=== PATIENT | female | born 1925 | race Asian ===

== ENCOUNTER 2017-02-09 18:19 | Inpatient (IN) | payer MEDICARE, MEDICAID ==
[~2017-02-09] VITALS: Ht 152.4 cm; Wt 51.7 kg
--- NOTE | 2017-02-09 18:08 | Emergency Room Report ---
History of Present Illness General Chief Complaint: Abnormal Labs Source: Patient, EMS Present Illness HPI Patient presents via EMS after being found down on her floor. She had a glucose of 25. They gave her D10W a total of 25 g and she woke up. She was still altered at that time. She has a history of diabetes and hypertension. Not know when her last tetanus shot was. It's unknown whether she takes blood thinners. She denies pain. She also denies fever or cough. No chest pain now. No dysuria. She has some skin changes from being on the floor. She takes insulin. Allergies: Coded Allergies: NO KNOWN DRUG ALLERGIES (Unverified Allergy, Unknown, 02/10/17) Uncoded Allergies: NO KNOWN ALLERGY (Allergy, Unknown, 02/09/17) Patient History Past Medical History: see triage record Social History Narrative from home Reviewed Nursing Documentation: PMH: Agreed, PSxH: Agreed Nursing Documentation-PM Past Medical History: No History, Except For Hx Hypertension: Yes Hx Diabetes: Yes Review of Systems All Other Systems: negative except mentioned in HPI Physical Exam Vital Signs Date Time Temp Pulse Resp B/P (MAP) Pulse Ox O2 Delivery O2 Flow Rate FiO2 02/09/17 17:52 81 16 152/65 95 Room Air Sp02 EP Interpretation: reviewed, normal General Appearance: well appearing, no apparent distress, thin - frail, other - GCS 14 Head: normocephalic Eyes: bilateral eye normal inspection, bilateral eye PERRL ENT: dry mucus membranes Neck: full range of motion, supple, no bony tend Respiratory: chest non-tender, lungs clear, normal breath sounds Cardiovascular #1: regular rate, rhythm Cardiovascular #2: 2+ radial (R) Gastrointestinal: normal inspection, normal bowel sounds, non tender, no mass, non-distended Musculoskeletal: back normal, normal range of motion, pelvis stable Neurologic: alert, motor strength/tone normal, DTRs symmetric, sensory intact, speech normal, oriented - X2 Psychiatric: mood/affect normal Skin: warm/dry, abrasions Medical Decision Making Diagnostic Impression: Primary Impression: Hypoglycemia Additional Impressions: Altered level of consciousness Hypernatremia Renal insufficiency Diabetes mellitus Qualified Codes: E10.69 - Type 1 diabetes mellitus with other specified complication ER Course The patient presents with hypoglycemia and after being on the ground for a prolonged period of time. Differential includes rhabdomyolysis, occult infection, acute myocardial infarction, insulin excess, brain bleed amongst others. Evaluation will be with EKG, labs, CT of the head and chest x-ray. EKG unremarkable. CXR no infiltrates. CT white matter changes. Patient treated with tetanus and hydration. Labs are significant for hyponatremia and renal insufficiency suggesting dehydration. The patient will receive gentle hydration in the emergency department. Admit tele Dr. Pierce. Laboratory Tests Test 02/09/17 18:05 02/09/17 19:27 White Blood Count 12.6 K/UL (4.8-10.8) H Red Blood Count 3.68 M/UL (4.20-5.40) L Hemoglobin 11.4 G/DL (12.0-16.0) L Hematocrit 32.4 % (37.0-47.0) L Mean Corpuscular Volume 88 FL (80-99) Mean Corpuscular Hemoglobin 31.0 PG (27.0-31.0) Mean Corpuscular Hemoglobin Concent 35.1 G/DL (32.0-36.0) Red Cell Distribution Width 12.0 % (11.6-14.8) Platelet Count 256 K/UL (150-450) Mean Platelet Volume 5.3 FL (6.5-10.1) L Neutrophils (%) (Auto) % (45.0-75.0) Lymphocytes (%) (Auto) % (20.0-45.0) Monocytes (%) (Auto) % (1.0-10.0) Eosinophils (%) (Auto) % (0.0-3.0) Basophils (%) (Auto) % (0.0-2.0) Differential Total Cells Counted 100 Neutrophils % (Manual) 86 % (45-75) H Lymphocytes % (Manual) 5 % (20-45) L Monocytes % (Manual) 7 % (1-10) Eosinophils % (Manual) 0 % (0-3) Basophils % (Manual) 0 % (0-2) Band Neutrophils 2 % (0-8) Platelet Estimate Adequate Platelet Morphology Normal Red Blood Cell Morphology Hypochromasia 1+ Anisocytosis 1+ Prothrombin Time 10.0 SEC (9.30-11.50) Prothrombin Time INR 1.0 (0.9-1.1) PTT 24 SEC (23-33) Sodium Level 147 mEQ/L (135-145) H Potassium Level 4.1 mEQ/L (3.4-4.9) Chloride Level 106 mEQ/L (98-107) Carbon Dioxide Level 25 mEQ/L (20-30) Anion Gap 16 (5-15) H Blood Urea Nitrogen 36 mg/dL (7-23) H Creatinine 1.6 mg/dL (0.5-0.9) H Estimate Glomerular Filtration Rate mL/min (>60) Glucose Level 161 mg/dL (74-106) H Calcium Level 9.8 mg/dL (8.6-10.2) Total Bilirubin 0.4 mg/dL (0.0-1.2) Aspartate Amino Transferase (AST) 48 U/L (5-40) H Alanine Aminotransferase (ALT) 24 U/L (3-33) Alkaline Phosphatase 44 U/L (35-104) Total Creatine Kinase 499 U/L (26-140) H Troponin I < 0.30 ng/mL (<=0.30) Pro-B-Type Natriuretic Peptide 1138 pg/mL (0-450) H Total Protein 8.0 g/dL (6.6-8.7) Albumin 4.3 g/dL (3.5-5.2) Globulin 3.7 g/dL Albumin/Globulin Ratio 1.1 (1.0-2.7) Urine Color Pale yellow Urine Appearance Clear Urine pH 6.5 (4.5-8.0) Urine Specific [place] 1.015 (1.005-1.035) Urine Protein 4+ (NEGATIVE) H Urine Glucose (UA) 2+ (NEGATIVE) H Urine Ketones 2+ (NEGATIVE) H Urine Occult Blood 5+ (NEGATIVE) H Urine Nitrite Negative (NEGATIVE) Urine Bilirubin Negative (NEGATIVE) Urine Urobilinogen Normal MG/DL (0.0-1.0) Urine Leukocyte Esterase Negative (NEGATIVE) Urine RBC 5-10 /HPF (0 - 2) H Urine WBC 0-2 /HPF (0 - 2) Urine Squamous Epithelial Cells Occasional /LPF Urine Bacteria Few /HPF (NONE) EKG Diagnostic Results Rate: normal Rhythm: NSR ST Segments: no acute changes - prolonged QT Rhythm Strip Diag. Results EP Interpretation: yes Rhythm: NSR, no PVC's, no ectopy Chest X-Ray Diagnostic Results Chest X-Ray Diagnostic Results : Chest X-Ray Ordered: Yes # of Views/Limited/Complete: 1 View Indication: Other EP Interpretation: Yes Interpretation: no consolidation, no effusion, no pneumothorax, no acute cardiopulmonary disease Impression: No acute disease Interpreting ER Provider: Electronically signed by Paul Perdomo MD CT/MRI/US Diagnostic Results CT/MRI/US Diagnostic Results : Imaging Test Ordered: head Impression white matter changes, no CVA or bleed Status: improved Disposition: ADMITTED INPATIENT Condition: Serious Paul Perdomo M.D. Feb 09, 2017 18:08
[~2017-02-09 18:19] MED LIST: Bacitracin Oint UD TOPIC ONE; LANTUS SOL100 UNIT/1 SUBQ
[2017-02-09 18:20] VITALS: BP 148/62
[2017-02-09 18:56] LABS: ALANINE AMINOTRANSFERASE 24 U/L (3-33); ALBUMIN/GLOBULIN RATIO 1.1 (1.0-2.7); ANION GAP 16 (5-15); ASPARTATE AMINO TRANSFERASE 48 U/L (5-40); CALCIUM 9.8 mg/dL (8.6-10.2); CARBON DIOXIDE 25 mEQ/L (20-30); CHLORIDE 106 mEQ/L (98-107); CREATININE 1.6 mg/dL (0.5-0.9); HEMOLYSIS 13; POTASSIUM 4.1 mEQ/L (3.4-4.9); SODIUM 147 mEQ/L (135-145)
[2017-02-09 19:02] LABS: MEAN CORPUSCULAR HGB CONC 35.1 G/DL (32.0-36.0); MEAN CORPUSCULAR VOLUME 88 FL (80-99); MEAN PLATELET VOLUME 5.3 FL (6.5-10.1); PLATELET COUNT 256 K/UL (150-450); RED BLOOD COUNT 3.68 M/UL (4.20-5.40); WHITE BLOOD COUNT 12.6 K/UL (4.8-10.8)
[2017-02-09 19:13] LABS: TROPONIN I < 0.30 ng/mL (<=0.30)
[2017-02-09] MEDS ORDERED: Tubing IV Cassette IV ONE (19:20)
[2017-02-09 19:49] LABS: APPEARANCE,URINE CLEAR; KETONES,URINE 2+ (NEGATIVE); LEUKOCYTE ESTERASE ,URINE NEGATIVE (NEGATIVE); NITRITE,URINE NEGATIVE (NEGATIVE); PH,URINE 6.5 (4.5-8.0); PROTEIN,URINE 4+ (NEGATIVE); UROBILINOGEN,URINE NORMAL MG/DL (0.0-1.0)
[2017-02-09] MEDS ORDERED: Tetanus/Diptheria/Pertussis Vaccine 0.5ml Syr IM ONE (20:00)
[2017-02-09 20:02] LABS: BACTERIA,URINE FEW /HPF; SQUAMOUS EPITHELIAL CELL,UR OCCASIONAL /LPF (NONE/OCC); WBC,URINE 0-2 /HPF (0 - 2)
[2017-02-09 20:09] LABS: ANISOCYTOSIS 1+; BAND NEUTROPHILS % (MANUAL) 2 % (0-8); LYMPHOCYTES % (MANUAL) 5 % (20-45); NEUTROPHILS % (MANUAL) 86 % (45-75); TOTAL CELLS COUNTED 100
[2017-02-09 20:10] LABS: BASOPHILS % (MANUAL) 0 % (0-2); EOSINOPHILS % (MANUAL) 0 % (0-3); HYPOCHROMASIA 1+; PLATELET ESTIMATE ADEQUATE; PLATELET MORPHOLOGY NORMAL
[2017-02-09] MEDS ORDERED: Miralax 17gm pkt ORAL PRN (21:15)
[2017-02-09] MEDS ORDERED: DuoNeb 0.5-3(2.5)mg/3ml neb HHN PRN (21:15)
[2017-02-09] MEDS ORDERED: Morphine Sulfate 2mg/ml Inj IVP PRN (21:15)
[2017-02-09] MEDS ORDERED: Nitroglycerin Subl 0.4mg tab (Bottle Of 25) SL PRN (21:15)
[2017-02-09 21:50] VITALS: BP 148/82
[2017-02-09] MEDS ORDERED: Cefepime 1gm vial ONE (22:09)
[2017-02-09] MEDS ORDERED: Vancomycin 1gm inj IVPB ONE (22:09)
[2017-02-09] MEDS: Cefepime 1gm/D5W 55ml IVPB SCH ×2 (22:18)
[2017-02-09] MEDS ORDERED: Vancomycin 1 GM in D5W 275 ML IVPB ONE (23:00)
[2017-02-10] VITALS: BP 153/111
[2017-02-10 04:00] VITALS: BP 137/71
[2017-02-10] MEDS: NovoLOG Insulin Flexpen SUBQ SCH ×4 (06:45→20:35)
[2017-02-10 08:44] VITALS: BP 138/76
[2017-02-10] MEDS: Heparin 5000 units/ml inj SUBQ SCH ×2 (08:55→20:36)
[2017-02-10] MEDS ORDERED: Cefepime HCl 2 GM in D5W 110 ML IV SCH (09:00)
[2017-02-10 11:51] VITALS: BP 112/50
--- NOTE | 2017-02-10 12:37 | Wound Care Consultation ---
Wound Assessment Wound Assessment #1: Wound Present on Admission: Yes New Wound: No Status Change of Wound: No Wound Location Body Site Modif: mid, upper Wound Location Body Site: sacral Wound Type: pressure ulcer Yoel Test: Does not Yoel Pressure Ulcer Stage: II - scattered Wound Thickness: Partial Thickness Wound Length: 4.0 Wound Width: 4.5 Wound Depth: less than 0.1 Percent of Wound [place]/Red: 100 Wound Drainage Description: Serosanguineous Wound Drainage Amount: Scant Wound Drainage Odor: None/Absent Tissue Surrounding Wound: Erythemic - purple Wound General Appearance: Reddened Wound Assessment #2: Wound Number: 2 Wound Present on Admission: Yes New Wound: No Status Change of Wound: No Wound Location Body Site Modif: mid Wound Location Body Site: other - Sacrococcygeal Wound Type: pressure ulcer Yoel Test: Does not Yoel Pressure Ulcer Stage: deep tissue injury Wound Thickness: Full Thickness Wound Length: 4.0 Wound Width: 4.5 Wound Depth: utd Percent of Wound Purple/Maroon: 100 Wound Drainage Amount: None Wound Drainage Odor: None/Absent Tissue Surrounding Wound: Erythemic Wound General Appearance: Reddened - purple Wound Assessment #3: Wound Number: 3 Wound Present on Admission: Yes New Wound: No Status Change of Wound: No Wound Location Body Site Modif: left, right, lower Wound Location Body Site: leg Wound Type: other - abrasion Yoel Test: Does not Yoel Wound Thickness: Partial Thickness Wound Drainage Amount: None Wound Drainage Odor: None/Absent Tissue Surrounding Wound: Erythemic Wound General Appearance: Reddened Wound Assessment #4: Wound Number: 4 Wound Present on Admission: Yes New Wound: No Status Change of Wound: No Wound Location Body Site Modif: right Wound Location Body Site: toe - big Wound Type: scab Yoel Test: Does not Yoel Wound Thickness: Full Thickness Wound Length: 1.5 Wound Width: 0.8 Percent of Wound Black/Brown: 100 Wound Drainage Description: Serosanguineous Wound Drainage Amount: None Wound Drainage Odor: None/Absent Tissue Surrounding Wound: Erythemic Wound General Appearance: Reddened Wound Comment #1 Upper Sacral scattered stage II pressure ulcer #2 Sacrococcygeal DTI pressure ulcer #3 Left and right lower legs with abrasions #4 Right big toe with dry scab Recommendation -Local wound care per protocol -Optimize nutrition -Keep clean and dry -Offload both heels -Low air loss mattress -Heel protector on both heels -Turn and reposition -Assess and f/u accordingly for any changes LUCIAN DODSON RN Feb 10, 2017 12:37
--- NOTE | 2017-02-10 12:46 | History and Physical ---
History of Present Illness General Date patient seen: Feb 10, 2017 Reason for Hospitalization: Abnormal Labs Present Illness HPI 89 year old female with hx of DM, on insulin brought in by paramedics with cc of MIGUELINA, she found down on her floor. She had a glucose of 25. paramedics gave her D. 10 a total of 25 g and she woke up. She was still altered at that time. She is admitted to telemetry for acute encephalopathy and hypoglycemia. She also was found to be in renal failure. Allergies: Uncoded Allergies: NO KNOWN ALLERGY (Allergy, Unknown, 02/09/17) UNABLE (Allergy, Unknown, 02/09/17) Medication History Scheduled Insulin Glargine (Lantus), 0 SUBQ BEDTIME, (Reported) Patient History Healthcare decision maker Resuscitation status Full Code Advanced Directive on File Past Medical/Surgical History Past Medical/Surgical History: (1) Diabetes mellitus Review of Systems All Other Systems: negative except mentioned in HPI Physical Exam General Appearance: WD/WN Lines, tubes and drains: peripheral HEENT: normocephalic, atraumatic Neck: non-tender, normal alignment Respiratory/Chest: chest wall non-tender, lungs clear Breasts: no masses Cardiovascular/Chest: normal peripheral pulses, normal rate Abdomen: normal bowel sounds, non tender Genitourinary/Rectal: normal genital exam, normal rectal exam Extremities: normal range of motion, non-tender Last 24 Hour Vital Signs Date Time Temp Pulse Resp B/P (MAP) Pulse Ox O2 Delivery O2 Flow Rate FiO2 02/10/17 11:51 97.7 74 18 112/50 96 Room Air 02/10/17 08:44 97.5 100 18 138/76 97 Room Air 02/10/17 07:44 91 18 Room Air 21 02/10/17 04:00 72 02/10/17 04:00 97.5 71 14 137/71 99 Room Air 02/10/17 00:00 97.0 71 15 153/111 99 Room Air 02/10/17 00:00 74 02/09/17 21:50 96.4 71 15 148/82 99 Room Air 02/09/17 21:50 70 02/09/17 21:30 71 16 145/80 97 Room Air 02/09/17 18:20 71 16 148/62 97 Room Air 02/09/17 17:52 81 16 152/65 95 Room Air Laboratory Tests Test 02/09/17 18:05 02/09/17 19:27 White Blood Count 12.6 K/UL (4.8-10.8) H Red Blood Count 3.68 M/UL (4.20-5.40) L Hemoglobin 11.4 G/DL (12.0-16.0) L Hematocrit 32.4 % (37.0-47.0) L Mean Corpuscular Volume 88 FL (80-99) Mean Corpuscular Hemoglobin 31.0 PG (27.0-31.0) Mean Corpuscular Hemoglobin Concent 35.1 G/DL (32.0-36.0) Red Cell Distribution Width 12.0 % (11.6-14.8) Platelet Count 256 K/UL (150-450) Mean Platelet Volume 5.3 FL (6.5-10.1) L Neutrophils (%) (Auto) % (45.0-75.0) Lymphocytes (%) (Auto) % (20.0-45.0) Monocytes (%) (Auto) % (1.0-10.0) Eosinophils (%) (Auto) % (0.0-3.0) Basophils (%) (Auto) % (0.0-2.0) Differential Total Cells Counted 100 Neutrophils % (Manual) 86 % (45-75) H Lymphocytes % (Manual) 5 % (20-45) L Monocytes % (Manual) 7 % (1-10) Eosinophils % (Manual) 0 % (0-3) Basophils % (Manual) 0 % (0-2) Band Neutrophils 2 % (0-8) Platelet Estimate Adequate Platelet Morphology Normal Red Blood Cell Morphology Hypochromasia 1+ Anisocytosis 1+ Prothrombin Time 10.0 SEC (9.30-11.50) Prothromb Time International Ratio 1.0 (0.9-1.1) Activated Partial Thromboplast Time 24 SEC (23-33) Sodium Level 147 mEQ/L (135-145) H Potassium Level 4.1 mEQ/L (3.4-4.9) Chloride Level 106 mEQ/L (98-107) Carbon Dioxide Level 25 mEQ/L (20-30) Anion Gap 16 (5-15) H Blood Urea Nitrogen 36 mg/dL (7-23) H Creatinine 1.6 mg/dL (0.5-0.9) H Estimat Glomerular Filtration Rate mL/min (>60) Glucose Level 161 mg/dL (74-106) H Calcium Level 9.8 mg/dL (8.6-10.2) Total Bilirubin 0.4 mg/dL (0.0-1.2) Aspartate Amino Transf (AST/SGOT) 48 U/L (5-40) H Alanine Aminotransferase (ALT/SGPT) 24 U/L (3-33) Alkaline Phosphatase 44 U/L (35-104) Total Creatine Kinase 499 U/L (26-140) H Troponin I < 0.30 ng/mL (<=0.30) Pro-B-Type Natriuretic Peptide 1138 pg/mL (0-450) H Total Protein 8.0 g/dL (6.6-8.7) Albumin 4.3 g/dL (3.5-5.2) Globulin 3.7 g/dL Albumin/Globulin Ratio 1.1 (1.0-2.7) Urine Color Pale yellow Urine Appearance Clear Urine pH 6.5 (4.5-8.0) Urine Specific [place] 1.015 (1.005-1.035) Urine Protein 4+ (NEGATIVE) H Urine Glucose (UA) 2+ (NEGATIVE) H Urine Ketones 2+ (NEGATIVE) H Urine Occult Blood 5+ (NEGATIVE) H Urine Nitrite Negative (NEGATIVE) Urine Bilirubin Negative (NEGATIVE) Urine Urobilinogen Normal MG/DL (0.0-1.0) Urine Leukocyte Esterase Negative (NEGATIVE) Urine RBC 5-10 /HPF (0 - 2) H Urine WBC 0-2 /HPF (0 - 2) Urine Squamous Epithelial Cells Occasional /LPF Urine Bacteria Few /HPF (NONE) Height (Feet): 5 Height (Inches): 0.00 Weight (Pounds): 114 Medications Current Medications Medications (Trade) Dose Ordered Sig/Reji Route PRN Reason Start Time Stop Time Status Last Admin Dose Admin Acetaminophen (Tylenol) 650 mg Q4H PRN ORAL fever 02/09/17 21:15 03/11/17 21:14 Albuterol/ Ipratropium (DuoNeb 0.5-3(2.5)mg/3ml) 3 ml Q4H PRN HHN Shortness of Breath 02/09/17 21:15 02/14/17 21:14 Cefepime HCl 1 gm/ Dextrose 55 ml @ 110 mls/hr Q24H IVPB 02/09/17 22:00 02/16/17 21:59 02/09/17 22:18 Dextrose (Dextrose 50%) STAT PRN IV Hypoglycemia 02/09/17 21:15 03/11/17 21:14 Heparin Sodium (Porcine) (Heparin 5000 units/ml) 5,000 units EVERY 12 HOURS SUBQ 02/10/17 09:00 03/12/17 08:59 02/10/17 08:55 Insulin Aspart (NovoLOG) BEFORE MEALS AND HS SUBQ 02/10/17 06:30 03/12/17 06:29 02/10/17 12:14 Morphine Sulfate (Morphine Sulfate) 2 mg Q4H PRN IVP Moderate Pain (Pain Scale 4-6) 02/09/17 21:15 02/16/17 21:14 Nitroglycerin (Ntg) 0.4 mg Q5M PRN SL Prn Chest Pain 02/09/17 21:15 03/11/17 21:14 Ondansetron HCl (Zofran) 4 mg Q6H PRN IVP Nausea & Vomiting 02/09/17 21:15 03/11/17 21:14 Polyethylene Glycol (Miralax) 17 gm DAILYPRN PRN ORAL Constipation 02/09/17 21:15 03/11/17 21:14 Temazepam (Restoril) 15 mg HSPRN PRN ORAL Insomnia 02/09/17 21:15 02/16/17 21:14 Vancomycin HCl (Vanco rx to dose) 1 ea DAILY PRN MISC PER RX PROTOCOL 02/09/17 21:30 03/11/17 21:29 Vancomycin/Sodium Chloride 250 ml @ 166.667 mls/hr Q48H IVPB 02/11/17 23:00 02/16/17 22:59 Assessment/Plan Problem List: (1) Altered level of consciousness ICD Codes: R40.4 - Transient alteration of awareness SNOMED: 0101367 (2) ATN (acute tubular necrosis) ICD Codes: N17.0 - Acute kidney failure with tubular necrosis SNOMED: 85928846 (3) Hypoglycemia ICD Codes: E16.2 - Hypoglycemia, unspecified SNOMED: 318255563 (4) Hypernatremia ICD Codes: E87.0 - Hyperosmolality and hypernatremia SNOMED: 82044113 (5) Diabetes mellitus ICD Codes: E11.9 - Type 2 diabetes mellitus without complications SNOMED: 06999466 Assessment/Plan telemetry monitoring cardiac w./u renal w/u sliding sclae pt/ot f/u wbc CLARISSA WAGGONER Feb 10, 2017 12:46
--- NOTE | 2017-02-10 15:08 | Consultation ---
History of Present Illness General Chief Complaint: Abnormal Labs Present Illness HPI 89 year old female with hx of DM, on insulin brought in by paramedics with cc of ALOC, she found down on the floor. the pt has been agitated coming out of bed and is confused and disoriented. poor historian. Allergies: Uncoded Allergies: NO KNOWN ALLERGY (Allergy, Unknown, 02/09/17) UNABLE (Allergy, Unknown, 02/09/17) Medication History Scheduled Insulin Glargine (Lantus), 0 SUBQ BEDTIME, (Reported) Patient History History Provided By: Patient, Medical Record, PMD Healthcare decision maker Resuscitation status Full Code Advanced Directive on File Past Medical/Surgical History Past Medical/Surgical History: (1) Hypernatremia (2) Renal insufficiency (3) Altered level of consciousness (4) Diabetes mellitus (5) Hypoglycemia (6) ATN (acute tubular necrosis) Review of Systems Psychiatric: Reports: prior hx, emotional problems, hallucinations Physical Exam General Appearance: confused Neurologic: disoriented, depressed affect Last 24 Hour Vital Signs Date Time Temp Pulse Resp B/P (MAP) Pulse Ox O2 Delivery O2 Flow Rate FiO2 02/10/17 11:51 97.7 74 18 112/50 96 Room Air 02/10/17 08:44 97.5 100 18 138/76 97 Room Air 02/10/17 07:44 91 18 Room Air 21 02/10/17 04:00 72 02/10/17 04:00 97.5 71 14 137/71 99 Room Air 02/10/17 00:00 97.0 71 15 153/111 99 Room Air 02/10/17 00:00 74 02/09/17 21:50 96.4 71 15 148/82 99 Room Air 02/09/17 21:50 70 02/09/17 21:30 71 16 145/80 97 Room Air 02/09/17 18:20 71 16 148/62 97 Room Air 02/09/17 17:52 81 16 152/65 95 Room Air Intake and Output 02/10/17 02/11/17 19:00 07:00 Intake Total 240 ml Balance 240 ml Intake Oral 240 ml Laboratory Tests Test 02/09/17 18:05 02/09/17 19:27 White Blood Count 12.6 K/UL (4.8-10.8) H Red Blood Count 3.68 M/UL (4.20-5.40) L Hemoglobin 11.4 G/DL (12.0-16.0) L Hematocrit 32.4 % (37.0-47.0) L Mean Corpuscular Volume 88 FL (80-99) Mean Corpuscular Hemoglobin 31.0 PG (27.0-31.0) Mean Corpuscular Hemoglobin Concent 35.1 G/DL (32.0-36.0) Red Cell Distribution Width 12.0 % (11.6-14.8) Platelet Count 256 K/UL (150-450) Mean Platelet Volume 5.3 FL (6.5-10.1) L Neutrophils (%) (Auto) % (45.0-75.0) Lymphocytes (%) (Auto) % (20.0-45.0) Monocytes (%) (Auto) % (1.0-10.0) Eosinophils (%) (Auto) % (0.0-3.0) Basophils (%) (Auto) % (0.0-2.0) Differential Total Cells Counted 100 Neutrophils % (Manual) 86 % (45-75) H Lymphocytes % (Manual) 5 % (20-45) L Monocytes % (Manual) 7 % (1-10) Eosinophils % (Manual) 0 % (0-3) Basophils % (Manual) 0 % (0-2) Band Neutrophils 2 % (0-8) Platelet Estimate Adequate Platelet Morphology Normal Red Blood Cell Morphology Hypochromasia 1+ Anisocytosis 1+ Prothrombin Time 10.0 SEC (9.30-11.50) Prothromb Time International Ratio 1.0 (0.9-1.1) Activated Partial Thromboplast Time 24 SEC (23-33) Sodium Level 147 mEQ/L (135-145) H Potassium Level 4.1 mEQ/L (3.4-4.9) Chloride Level 106 mEQ/L (98-107) Carbon Dioxide Level 25 mEQ/L (20-30) Anion Gap 16 (5-15) H Blood Urea Nitrogen 36 mg/dL (7-23) H Creatinine 1.6 mg/dL (0.5-0.9) H Estimat Glomerular Filtration Rate mL/min (>60) Glucose Level 161 mg/dL (74-106) H Calcium Level 9.8 mg/dL (8.6-10.2) Total Bilirubin 0.4 mg/dL (0.0-1.2) Aspartate Amino Transf (AST/SGOT) 48 U/L (5-40) H Alanine Aminotransferase (ALT/SGPT) 24 U/L (3-33) Alkaline Phosphatase 44 U/L (35-104) Total Creatine Kinase 499 U/L (26-140) H Troponin I < 0.30 ng/mL (<=0.30) Pro-B-Type Natriuretic Peptide 1138 pg/mL (0-450) H Total Protein 8.0 g/dL (6.6-8.7) Albumin 4.3 g/dL (3.5-5.2) Globulin 3.7 g/dL Albumin/Globulin Ratio 1.1 (1.0-2.7) Urine Color Pale yellow Urine Appearance Clear Urine pH 6.5 (4.5-8.0) Urine Specific [place] 1.015 (1.005-1.035) Urine Protein 4+ (NEGATIVE) H Urine Glucose (UA) 2+ (NEGATIVE) H Urine Ketones 2+ (NEGATIVE) H Urine Occult Blood 5+ (NEGATIVE) H Urine Nitrite Negative (NEGATIVE) Urine Bilirubin Negative (NEGATIVE) Urine Urobilinogen Normal MG/DL (0.0-1.0) Urine Leukocyte Esterase Negative (NEGATIVE) Urine RBC 5-10 /HPF (0 - 2) H Urine WBC 0-2 /HPF (0 - 2) Urine Squamous Epithelial Cells Occasional /LPF Urine Bacteria Few /HPF (NONE) Microbiology Date/Time Source Procedure Growth Status 02/10/17 04:20 Wound Gram Stain - Final Resulted 02/10/17 04:20 Wound Wound Culture Pending Resulted Height (Feet): 5 Height (Inches): 0.00 Weight (Pounds): 114 Medications Current Medications Medications (Trade) Dose Ordered Sig/Reji Route PRN Reason Start Time Stop Time Status Last Admin Dose Admin Acetaminophen (Tylenol) 650 mg Q4H PRN ORAL fever 02/09/17 21:15 03/11/17 21:14 Albuterol/ Ipratropium (DuoNeb 0.5-3(2.5)mg/3ml) 3 ml Q4H PRN HHN Shortness of Breath 02/09/17 21:15 02/14/17 21:14 Cefepime HCl 1 gm/ Dextrose 55 ml @ 110 mls/hr Q24H IVPB 02/09/17 22:00 02/16/17 21:59 02/09/17 22:18 Dextrose (Dextrose 50%) STAT PRN IV Hypoglycemia 02/09/17 21:15 03/11/17 21:14 Heparin Sodium (Porcine) (Heparin 5000 units/ml) 5,000 units EVERY 12 HOURS SUBQ 02/10/17 09:00 03/12/17 08:59 02/10/17 08:55 Insulin Aspart (NovoLOG) BEFORE MEALS AND HS SUBQ 02/10/17 06:30 03/12/17 06:29 02/10/17 12:14 Morphine Sulfate (Morphine Sulfate) 2 mg Q4H PRN IVP Moderate Pain (Pain Scale 4-6) 02/09/17 21:15 02/16/17 21:14 Nitroglycerin (Ntg) 0.4 mg Q5M PRN SL Prn Chest Pain 02/09/17 21:15 03/11/17 21:14 Ondansetron HCl (Zofran) 4 mg Q6H PRN IVP Nausea & Vomiting 02/09/17 21:15 03/11/17 21:14 Polyethylene Glycol (Miralax) 17 gm DAILYPRN PRN ORAL Constipation 02/09/17 21:15 03/11/17 21:14 Temazepam (Restoril) 15 mg HSPRN PRN ORAL Insomnia 02/09/17 21:15 02/16/17 21:14 Vancomycin HCl (Vanco rx to dose) 1 ea DAILY PRN MISC PER RX PROTOCOL 02/09/17 21:30 03/11/17 21:29 Vancomycin/Sodium Chloride 250 ml @ 166.667 mls/hr Q48H IVPB 02/11/17 23:00 02/16/17 22:59 Assessment/Plan Status: not improved Assessment/Plan Delirium due to [facility], dementia -seroquel 12.5mg q 4hr prn -cont to treat underlying cause of encephalopathy Ant Jackman M.D. Feb 10, 2017 15:08
[2017-02-10 15:44] VITALS: BP 128/66
--- NOTE | 2017-02-10 16:32 | Infectious Diseases Prog Note ---
Infectious Disease Consult Infectious Disease Consult Infectious Disease Consult INFECTIOUS DISEASE CONSULTATION DATE OF CONSULTATION: [id number] CONSULTING PHYSICIAN: Pratik Dumont M.D., MTM&H, CTropMed Covering for Dr. Suresh REFERRING PHYSICIAN: Ricky Pierce MD REASON FOR CONSULTATION: Delirium, sepsis, dehydration, TRACIE, leukocytosis HISTORY OF PRESENT ILLNESS: 89 y/o female, malay speaking, with PMHx notable for DM, HTN, prior remote L knee TKR, admitted with symptomatic hypoglycemia and persistent delirium after being found down at home. brought in by EMS after being found down for unknown period of time. given D50 that worke her up but remained confused and lethargic, she was not reported to be hypoxic. In the ER, she was afebrile, but noted to have leukocytosis with left shift, hypernatremia, increased SCr. A CXR was negative for infiltrate or effusion. CT head non contrast showed chronic white matter small vessel ischemic changes but no acute bleed, and an EKG demonstrated normal sinus rhythm with borderline prolonged QTc. Initial labs with WBC 12.6, with left shift, Na 147, nl Co2 with elevated anion gap, SCr 1.6, mildly elevated AST at 48 with normal ALT, mild moderate rhabdo with CPK 499, elevated pro BNP at 1138 , normal Alb at 4.3 w/o protein-albumin dissociation. A urinalysis w/o pyuria, not isosthenuric. Started empirically on IV vancomycin and cefepime at approx 23:00 last night. PAST MEDICAL HISTORY: DM HTN TIA Past Surgical History: L knee TKR ALLERGIES: No known drug allergies. ANTIBIOTICS: Home and hospitalized medications reviewed. SOCIAL HISTORY: unknown. lives at home. FAMILY HISTORY: Noncontributory REVIEW OF SYSTEMS: 11 point ROS negative except for that mentioned in HPI above. PHYSICAL EXAM: VITAL SIGNS: GEN: awake, alert, non toxic appearing HEENT: Mild pale conjunctiva. oral mucosa dry, pharynx w/o exudate or effusion. No icterus. Head normocephalic, neck supple. NECK: No cervical LAD CHEST: Clear to auscultation bilaterally. HEART: S1 and S2, no murmurs, no rubs. ABDOMEN: soft, non tender, non distended, normoactive bowel sounds. EXTREMITIES: No cyanosis, no clubbing, no edema. L knee anterior scar well healed, no edema, no effusion, no warmth, no erythema. R knee w/o effusion but some warmth and tenderness to PROM. strength limited by pain. no pain to palpation of hip b/l. +onychomycosis. b/l pretibial spaces are hyperpigmented with a few healing scabs. abrasions c/w h/o mechanical fall. NEUROLOGIC: Awake, confused, perseverating [birth year] birthday [birth year]) no focal neurologic motor deficits. pain to palpation R knee : no villegas in place. no external genital lesions, no vulvovaginal candidiasis. LYMPH: no LAD RECTAL: deferred LABORATORY AND DIAGNOSTIC DATA: WBC 12.6, N 86%, 2% bands u/a 1.015/0-2 wbc/5-10 rbc/few bacteria/neg LE/neg nitrite labs reviewed above in HPI micro: sacral wound gram stain: neg org, neg WBC RADIOLOGY: PCXR and CT head noncontrast reviewed above in HPI ASSESSMENT AND PLAN ASSESSMENT: sepsis, r/o occult bacteremia leukocytosis afebrile h/o L knee TKR, R knee warm w/o effusion on exam, c/l R knee pain Delirium, possible underlying dementia U/A negative for UTI Symptomatic hypoglycemia, resolved mild rhabdomyolysis (CPK 499) Dehydration Acute Kidney Injury secondary to prerenal azotemia Sacral decubitus ulcer onychomycosis uninfected R great toe abrasion, <1cm elevated anion gap (16) w/o acidosis venous stasis PLAN: --r/o occult bacteremia. blood cx 2 sets now. --r/o R knee MSK injury with knee x ray. evaluate L knee hardware --f/u sacral wound cx --routine wound care --aspiration precautions --f/u repeat CBC and chem in AM --continue renally dosed empiric IV vancomycin and cefepime 1gm q24hr D#1 further recs pending results of additional metabolic w/u tommorrow pending labs , results of blood cx. Thank you for this consultation. Will continue to follow. Covering for Dr. Suresh, please call me with questions, Pratik Dumont M.D. Feb 10, 2017 16:32
--- NOTE | 2017-02-10 17:36 | Cardiology Progress Note ---
Assessment/Plan Assessment/Plan [id number] Objective Last 24 Hour Vital Signs Date Time Temp Pulse Resp B/P (MAP) Pulse Ox O2 Delivery O2 Flow Rate FiO2 02/10/17 15:44 97.9 81 18 128/66 95 Room Air 02/10/17 12:00 81 02/10/17 11:51 97.7 74 18 112/50 96 Room Air 02/10/17 08:44 97.5 100 18 138/76 97 Room Air 02/10/17 08:00 92 02/10/17 07:44 91 18 Room Air 21 02/10/17 04:00 72 02/10/17 04:00 97.5 71 14 137/71 99 Room Air 02/10/17 00:00 97.0 71 15 153/111 99 Room Air 02/10/17 00:00 74 02/09/17 21:50 96.4 71 15 148/82 99 Room Air 02/09/17 21:50 70 02/09/17 21:30 71 16 145/80 97 Room Air 02/09/17 18:20 71 16 148/62 97 Room Air 02/09/17 17:52 81 16 152/65 95 Room Air Intake and Output 02/10/17 02/11/17 19:00 07:00 Intake Total 240 ml Balance 240 ml Intake Oral 240 ml # Voids 2 Laboratory Tests Test 02/09/17 18:05 02/09/17 19:27 White Blood Count 12.6 K/UL (4.8-10.8) H Red Blood Count 3.68 M/UL (4.20-5.40) L Hemoglobin 11.4 G/DL (12.0-16.0) L Hematocrit 32.4 % (37.0-47.0) L Mean Corpuscular Volume 88 FL (80-99) Mean Corpuscular Hemoglobin 31.0 PG (27.0-31.0) Mean Corpuscular Hemoglobin Concent 35.1 G/DL (32.0-36.0) Red Cell Distribution Width 12.0 % (11.6-14.8) Platelet Count 256 K/UL (150-450) Mean Platelet Volume 5.3 FL (6.5-10.1) L Neutrophils (%) (Auto) % (45.0-75.0) Lymphocytes (%) (Auto) % (20.0-45.0) Monocytes (%) (Auto) % (1.0-10.0) Eosinophils (%) (Auto) % (0.0-3.0) Basophils (%) (Auto) % (0.0-2.0) Differential Total Cells Counted 100 Neutrophils % (Manual) 86 % (45-75) H Lymphocytes % (Manual) 5 % (20-45) L Monocytes % (Manual) 7 % (1-10) Eosinophils % (Manual) 0 % (0-3) Basophils % (Manual) 0 % (0-2) Band Neutrophils 2 % (0-8) Platelet Estimate Adequate Platelet Morphology Normal Red Blood Cell Morphology Hypochromasia 1+ Anisocytosis 1+ Prothrombin Time 10.0 SEC (9.30-11.50) Prothromb Time International Ratio 1.0 (0.9-1.1) Activated Partial Thromboplast Time 24 SEC (23-33) Sodium Level 147 mEQ/L (135-145) H Potassium Level 4.1 mEQ/L (3.4-4.9) Chloride Level 106 mEQ/L (98-107) Carbon Dioxide Level 25 mEQ/L (20-30) Anion Gap 16 (5-15) H Blood Urea Nitrogen 36 mg/dL (7-23) H Creatinine 1.6 mg/dL (0.5-0.9) H Estimat Glomerular Filtration Rate mL/min (>60) Glucose Level 161 mg/dL (74-106) H Calcium Level 9.8 mg/dL (8.6-10.2) Total Bilirubin 0.4 mg/dL (0.0-1.2) Aspartate Amino Transf (AST/SGOT) 48 U/L (5-40) H Alanine Aminotransferase (ALT/SGPT) 24 U/L (3-33) Alkaline Phosphatase 44 U/L (35-104) Total Creatine Kinase 499 U/L (26-140) H Troponin I < 0.30 ng/mL (<=0.30) Pro-B-Type Natriuretic Peptide 1138 pg/mL (0-450) H Total Protein 8.0 g/dL (6.6-8.7) Albumin 4.3 g/dL (3.5-5.2) Globulin 3.7 g/dL Albumin/Globulin Ratio 1.1 (1.0-2.7) Urine Color Pale yellow Urine Appearance Clear Urine pH 6.5 (4.5-8.0) Urine Specific [place] 1.015 (1.005-1.035) Urine Protein 4+ (NEGATIVE) H Urine Glucose (UA) 2+ (NEGATIVE) H Urine Ketones 2+ (NEGATIVE) H Urine Occult Blood 5+ (NEGATIVE) H Urine Nitrite Negative (NEGATIVE) Urine Bilirubin Negative (NEGATIVE) Urine Urobilinogen Normal MG/DL (0.0-1.0) Urine Leukocyte Esterase Negative (NEGATIVE) Urine RBC 5-10 /HPF (0 - 2) H Urine WBC 0-2 /HPF (0 - 2) Urine Squamous Epithelial Cells Occasional /LPF Urine Bacteria Few /HPF (NONE) Microbiology Date/Time Source Procedure Growth Status 02/10/17 04:20 Wound Gram Stain - Final Resulted 02/10/17 04:20 Wound Wound Culture Pending Resulted LISA CHERRY Feb 10, 2017 17:36
[2017-02-10 20:00] VITALS: BP 121/66
[2017-02-10] MEDS: Cefepime 1gm/D5W 55ml IVPB SCH ×2 (21:17)
--- NOTE | 2017-02-10 23:30 | Consultation ---
DATE OF CONSULTATION: 02/10/2017 CARDIOLOGY CONSULTATION CONSULTING PHYSICIAN: Matt Ellington M.D. REFERRING PHYSICIAN: Ricky Pierce M.D. REASON FOR EVALUATION: Management of altered mentation. HISTORY OF PRESENT ILLNESS: The patient apparently was brought in by emergency medical services being found on the floor. She was noted to have a blood sugar of 25. They gave her D10 25 g, she woke up. She was still altered at the time of admission to the hospital. Because of her unknown history, she was admitted to the hospital. She does not have any chest pain or shortness of breath at this time. She is fully awake and responsive. She does have PND and she uses one pillow. There is no dizziness on standing. No heart pounding or palpitation. No pain, pressure, or tightness. PAST MEDICAL HISTORY: Positive for history of diabetes, high blood pressure, and high cholesterol. No heart attack. She has no cancer. She has history of stroke. No hepatitis or tuberculosis. No asthma or emphysema. No ulcers. No kidney problems, liver problems, or thyroid problems, that she is aware of. SOCIAL HISTORY: She does not smoke or drink alcoholic beverages. She never did. ALLERGIES: There is no known drug allergies. REVIEW OF SYSTEMS: Gastrointestinal: She denies any nausea, vomiting, diarrhea, or constipation. : She denies. Pulmonary: She denies. Constitutional: She denies. Neurological: She denies. PHYSICAL EXAMINATION: GENERAL: Shows to be elderly female, in no respiratory distress. NECK: Supple. No jugular venous distention. LUNGS: Clear to auscultation and percussion. CARDIAC: S1 is normal. S2 is normal. Regular rate and rhythm. No heaves, thrills, gallops, or rubs are noted. ABDOMEN: Soft and nontender. Positive bowel sounds. EXTREMITIES: There is no clubbing, cyanosis, nor is there any edema. NEUROLOGIC: She is awake, alert, and responsive, in no apparent respiratory distress. She is very slow to mentate. LABORATORY DATA: Urinalysis shows 5+ occult blood, 5 to 10 rbc's, and 0 to 2 wbc's. Her white count is 12.6, hemoglobin 11.4, and platelet count 256,000. Her sodium is 147, potassium 4.1, chloride 106, bicarb 25, BUN 36, and creatinine 1.6. Glucose 161. Liver function tests are normal. CK of 499. Troponin less than 0.03. ProBNP 1100. INR is 1. X-rays have been performed, although I am not able to pull up those records. ASSESSMENT: 1. Alteration of mental status. 2. Acute hypoglycemic episode. 3. Elevated CPK with normal troponin. PLAN: This patient was seen in cardiac consultation. The patient denies any chest pain or shortness of breath. No cardiac symptoms at this time. Her mentation has certainly improved compared to what she was reported to be having per the emergency physician's note. Her electrocardiogram is not available for me to review and I will order that EKG at this time. Her telemetry data appears to be sinus rhythm in origin. Her proBNP is minimally elevated of any concern based on negative clinical findings on examination. Orthostatic vitals will be also ordered. Dr. Pierce, thank you for allowing me to participate in care of this patient. Matt Ellington M.D. DR: ABHISHEK JOB#: [id number] CC:
[2017-02-11] VITALS: BP 115/67
[2017-02-11 04:00] VITALS: BP 125/75
[2017-02-11] MEDS: NovoLOG Insulin Flexpen SUBQ SCH ×4 (05:12→21:35)
[2017-02-11 07:10] LABS: PROTHROMBIN TIME 10.1 SEC (9.30-11.50)
[2017-02-11 07:20] LABS: MEAN CORPUSCULAR HEMOGLOBIN 30.1 PG (27.0-31.0); MEAN CORPUSCULAR VOLUME 91 FL (80-99); MEAN PLATELET VOLUME 5.5 FL (6.5-10.1); PLATELET COUNT 232 K/UL (150-450); RED BLOOD COUNT 3.27 M/UL (4.20-5.40); RED CELL DISTRIBUTION WIDTH 12.7 % (11.6-14.8); WHITE BLOOD COUNT 7.1 K/UL (4.8-10.8)
[2017-02-11 07:34] LABS: ALANINE AMINOTRANSFERASE 18 U/L (3-33); ALBUMIN/GLOBULIN RATIO 1.1 (1.0-2.7); ANION GAP 12 (5-15); ASPARTATE AMINO TRANSFERASE 28 U/L (5-40); CARBON DIOXIDE 23 mEQ/L (20-30); CHLORIDE 108 mEQ/L (98-107); CREATININE 1.7 mg/dL (0.5-0.9); CRP QUANT 2.8 mg/dL (< 0.5); LACTATE DEHYDROGENASE 245 U/L (135-230); MAGNESIUM 2.3 mg/dL (1.7-2.5); PHOSPHORUS 3.3 mg/dL (2.5-4.8); POTASSIUM 3.8 mEQ/L (3.4-4.9); SODIUM 143 mEQ/L (135-145)
[2017-02-11 08:00] VITALS: BP 118/66
[2017-02-11 08:04] LABS: HEMOLYSIS 13; IRON 59 ug/dL (37-145); TOTAL IRON BINDING CAPACITY 264 ug/dL (250-400)
[2017-02-11] MEDS: Heparin 5000 units/ml inj SUBQ SCH ×2 (08:14→21:34)
[2017-02-11 09:03] LABS: ERYTHROCYTE SEDIMENTATION RATE 58 MM/HR (0-42)
--- NOTE | 2017-02-11 10:38 | Diagnostic Imaging Report ---
Indication: AMS Technique: 2 views of the right knee Comparison: None Findings:There is severe chondrocalcinosis of the medial and lateral menisci. There is mild degenerative joint space narrowing medially and laterally. No acute fractures. No dislocations. No definite suprapatellar effusion. There is a small superior pole patellar traction spur Impression:Medial and lateral meniscal chondrocalcinosis. No acute bony trauma Minimal degenerative changes, as described
--- NOTE | 2017-02-11 10:40 | Diagnostic Imaging Report ---
Indication: AMS Technique: 2 views of the left knee Comparison: None Findings:There is a left knee prosthesis. There is a superior pole patellar traction osteophyte. No acute fractures. No dislocations Impression:No acute process
--- NOTE | 2017-02-11 11:31 | Consultation ---
Consult Note Consult Note asked to eval for high BUN and Cr Patient presents via EMS after being found down on her floor. She had a glucose of 25. They gave her D10W a total of 25 g and she woke up. She was still altered at that time. She has a history of diabetes and hypertension. Not know when her last tetanus shot was. It's unknown whether she takes blood thinners. She denies pain. She also denies fever or cough. No chest pain now. No dysuria. She has some skin changes from being on the floor. She takes insulin. PH: Positive for history of diabetes, high blood pressure, and high cholesterol. No heart attack. She has no cancer. She has history of stroke. No hepatitis or tuberculosis. No asthma or emphysema. No ulcers. No kidney problems, liver problems, or thyroid problems, that she is aware of. . Assessment/Plan status; Acute Renal Failure- Dehydration- HyperNatremia Encephalopathy- DM , present with low sugar Plan: Slow hydrate- Keep BP and BS in check per orders Avoid nephrotoxics ANDREW LEY Feb 11, 2017 11:31
[2017-02-11 11:46] LABS: PATH BLOOD SMEAR/OMC SENT TO PATHOLOGIST
--- NOTE | 2017-02-11 11:52 | General Progress Note ---
Assessment/Plan Status: stable, progressing Status Narrative cognitive impairment, delirium -cont current treatment -d/w charge nurse to administer meds when pt agitated Subjective Neurologic/Psychiatric: Reports: emotional problems Allergies: Coded Allergies: NO KNOWN DRUG ALLERGIES (Unverified Allergy, Unknown, 02/10/17) Uncoded Allergies: NO KNOWN ALLERGY (Allergy, Unknown, 02/09/17) Subjective in bed asleep. decrease agitation. calm. the pt is not engaged. confused. Objective Last 24 Hour Vital Signs Date Time Temp Pulse Resp B/P (MAP) Pulse Ox O2 Delivery O2 Flow Rate FiO2 02/11/17 08:00 97.0 94 19 118/66 95 Room Air 02/11/17 08:00 91 02/11/17 07:42 82 18 Room Air 21 02/11/17 04:00 98.1 88 20 125/75 94 Room Air 21 02/11/17 04:00 89 02/11/17 04:00 88 91 02/11/17 00:00 95 02/11/17 00:00 98.1 100 18 115/67 94 Room Air 21 02/10/17 20:00 97.0 96 16 121/66 96 Room Air 21 02/10/17 20:00 93 02/10/17 19:30 94 18 Room Air 21 02/10/17 16:00 78 02/10/17 15:44 97.9 81 18 128/66 95 Room Air 02/10/17 12:00 81 02/10/17 11:51 97.7 74 18 112/50 96 Room Air Laboratory Tests 02/11/17 04:50: White Blood Count 7.1, Red Blood Count 3.27L, Hemoglobin 9.8L, Hematocrit 29.8L , Mean Corpuscular Volume 91, Mean Corpuscular Hemoglobin 30.1, Mean Corpuscular Hemoglobin Concent 33.0, Red Cell Distribution Width 12.7, Platelet Count 232, Mean Platelet Volume 5.5L, Neutrophils (%) (Auto) , Lymphocytes (%) ( Auto) , Monocytes (%) (Auto) , Eosinophils (%) (Auto) , Basophils (%) (Auto) , Neutrophils % (Manual) [Pending], Lymphocytes % (Manual) [Pending], Platelet Estimate [Pending], Platelet Morphology [Pending], Erythrocyte Sedimentation Rate 58H, Reticulocyte Count [Pending], Prothrombin Time 10.1, Prothromb Time International Ratio 1.0, Activated Partial Thromboplast Time 33, Sodium Level 143, Potassium Level 3.8, Chloride Level 108H, Carbon Dioxide Level 23, Anion Gap 12, Blood Urea Nitrogen 38H, Creatinine 1.7H, Estimat Glomerular Filtration Rate , Glucose Level 92, Calcium Level 9.0, Phosphorus Level 3.3, Magnesium Level 2.3, Iron Level 59, Total Iron Binding Capacity 264, Percent Iron Saturation 22, Unsaturated Iron Binding 205, Ferritin [Pending], Total Bilirubin 0.5, Aspartate Amino Transf (AST/SGOT) 28, Alanine Aminotransferase ( ALT/SGPT) 18, Alkaline Phosphatase 41, Lactate Dehydrogenase 245H, C-Reactive Protein, Quantitative 2.8H, Total Protein 6.0L, Albumin 3.2L, Globulin 2.8, Albumin/Globulin Ratio 1.1, Carcinoembryonic Antigen 1.7, Vitamin B12 Level 597 , Folate [Pending] Height (Feet): 5 Height (Inches): 0.00 Weight (Pounds): 114 General Appearance: no apparent distress, confused Neurologic: disoriented, depressed affect Ant Jackman M.D. Feb 11, 2017 11:52
[2017-02-11 11:56] LABS: RETICULOCYTE COUNT 1.1 % (0.0-2.0)
[2017-02-11 12:00] VITALS: BP 140/80
[2017-02-11 12:25] LABS: BAND NEUTROPHILS % (MANUAL) 0 % (0-8); BASOPHILS % (MANUAL) 1 % (0-2); EOSINOPHILS % (MANUAL) 0 % (0-3); LYMPHOCYTES % (MANUAL) 21 % (20-45); NEUTROPHILS % (MANUAL) 73 % (45-75); PLATELET ESTIMATE ADEQUATE; PLATELET MORPHOLOGY NORMAL; TOTAL CELLS COUNTED 100
--- NOTE | 2017-02-11 15:17 | Pulmonology Progress Note ---
Assessment/Plan Problems: (1) Altered level of consciousness (2) ATN (acute tubular necrosis) (3) Hypoglycemia (4) Hypernatremia (5) Diabetes mellitus Assessment/Plan improving wbc normal afebrile sliding scale pt/ot social service consult Subjective Interval Events: no new complains Allergies: Coded Allergies: NO KNOWN DRUG ALLERGIES (Unverified Allergy, Unknown, 02/10/17) Uncoded Allergies: NO KNOWN ALLERGY (Allergy, Unknown, 02/09/17) Objective Last 24 Hour Vital Signs Date Time Temp Pulse Resp B/P (MAP) Pulse Ox O2 Delivery O2 Flow Rate FiO2 02/11/17 12:00 98.4 89 19 140/80 94 Room Air 02/11/17 08:00 97.0 94 19 118/66 95 Room Air 02/11/17 08:00 91 02/11/17 07:42 82 18 Room Air 21 02/11/17 04:00 98.1 88 20 125/75 94 Room Air 21 02/11/17 04:00 89 02/11/17 04:00 88 91 02/11/17 00:00 95 02/11/17 00:00 98.1 100 18 115/67 94 Room Air 21 02/10/17 20:00 97.0 96 16 121/66 96 Room Air 21 02/10/17 20:00 93 02/10/17 19:30 94 18 Room Air 21 02/10/17 16:00 78 02/10/17 15:44 97.9 81 18 128/66 95 Room Air Intake and Output 02/11/17 02/12/17 19:00 07:00 Intake Total 840 ml Balance 840 ml Intake Oral 840 ml # Voids 1 General Appearance: WD/WN HEENT: normocephalic, atraumatic Respiratory/Chest: chest wall non-tender, lungs clear Abdomen: normal bowel sounds, soft, non tender Genitourinary: normal external genitalia Extremities: no clubbing Skin: no lesions Microbiology Date/Time Source Procedure Growth Status 02/10/17 04:20 Wound Gram Stain - Final Resulted 02/10/17 04:20 Wound Culture - Preliminary Gram Negative Bacillus 1 Resulted Laboratory Tests 02/11/17 04:50: White Blood Count 7.1, Red Blood Count 3.27L, Hemoglobin 9.8L, Hematocrit 29.8L , Mean Corpuscular Volume 91, Mean Corpuscular Hemoglobin 30.1, Mean Corpuscular Hemoglobin Concent 33.0, Red Cell Distribution Width 12.7, Platelet Count 232, Mean Platelet Volume 5.5L, Neutrophils (%) (Auto) , Lymphocytes (%) ( Auto) , Monocytes (%) (Auto) , Eosinophils (%) (Auto) , Basophils (%) (Auto) , Differential Total Cells Counted 100, Neutrophils % (Manual) 73, Lymphocytes % ( Manual) 21, Monocytes % (Manual) 5, Eosinophils % (Manual) 0, Basophils % ( Manual) 1, Band Neutrophils 0, Platelet Estimate Adequate, Platelet Morphology Normal, Red Blood Cell Morphology Normal, Erythrocyte Sedimentation Rate 58H, Reticulocyte Count 1.1, Prothrombin Time 10.1, Prothromb Time International Ratio 1.0, Activated Partial Thromboplast Time 33, Sodium Level 143, Potassium Level 3.8, Chloride Level 108H, Carbon Dioxide Level 23, Anion Gap 12, Blood Urea Nitrogen 38H, Creatinine 1.7H, Estimat Glomerular Filtration Rate , Glucose Level 92, Calcium Level 9.0, Phosphorus Level 3.3, Magnesium Level 2.3, Iron Level 59, Total Iron Binding Capacity 264, Percent Iron Saturation 22, Unsaturated Iron Binding 205, Ferritin 330H, Total Bilirubin 0.5, Aspartate Amino Transf (AST/SGOT) 28, Alanine Aminotransferase (ALT/SGPT) 18, Alkaline Phosphatase 41, Lactate Dehydrogenase 245H, C-Reactive Protein, Quantitative 2.8H, Total Protein 6.0L, Albumin 3.2L, Globulin 2.8, Albumin/Globulin Ratio 1.1 , Carcinoembryonic Antigen 1.7, Vitamin B12 Level 597, Folate [Pending] Current Medications Medications (Trade) Dose Ordered Sig/Reji Route PRN Reason Start Time Stop Time Status Last Admin Dose Admin Acetaminophen (Tylenol) 650 mg Q4H PRN ORAL fever 02/09/17 21:15 03/11/17 21:14 Albuterol/ Ipratropium (DuoNeb 0.5-3(2.5)mg/3ml) 3 ml Q4H PRN HHN Shortness of Breath 02/09/17 21:15 02/14/17 21:14 Cefepime HCl 1 gm/ Dextrose 55 ml @ 110 mls/hr Q24H IVPB 02/09/17 22:00 02/16/17 21:59 02/10/17 21:17 Dextrose (Dextrose 50%) STAT PRN IV Hypoglycemia 02/09/17 21:15 03/11/17 21:14 Heparin Sodium (Porcine) (Heparin 5000 units/ml) 5,000 units EVERY 12 HOURS SUBQ 02/10/17 09:00 03/12/17 08:59 02/11/17 08:14 Insulin Aspart (NovoLOG) BEFORE MEALS AND HS SUBQ 02/10/17 06:30 03/12/17 06:29 02/11/17 12:09 Morphine Sulfate (Morphine Sulfate) 2 mg Q4H PRN IVP Moderate Pain (Pain Scale 4-6) 02/09/17 21:15 02/16/17 21:14 Nitroglycerin (Ntg) 0.4 mg Q5M PRN SL Prn Chest Pain 02/09/17 21:15 03/11/17 21:14 Ondansetron HCl (Zofran) 4 mg Q6H PRN IVP Nausea & Vomiting 02/09/17 21:15 03/11/17 21:14 Polyethylene Glycol (Miralax) 17 gm DAILYPRN PRN ORAL Constipation 02/09/17 21:15 03/11/17 21:14 Quetiapine Fumarate (SEROquel) 12.5 mg Q4H PRN ORAL agitation 02/10/17 15:15 03/12/17 15:14 Sodium Chloride 1,000 ml @ 100 mls/hr Q10H IV 02/11/17 11:45 03/13/17 11:44 02/11/17 12:10 Temazepam (Restoril) 15 mg HSPRN PRN ORAL Insomnia 02/09/17 21:15 02/16/17 21:14 Vancomycin HCl (Vanco rx to dose) 1 ea DAILY PRN MISC PER RX PROTOCOL 02/09/17 21:30 03/11/17 21:29 Vancomycin/Sodium Chloride 250 ml @ 166.667 mls/hr Q48H IVPB 02/11/17 23:00 02/16/17 22:59 CLARISSA WAGGONER Feb 11, 2017 15:17
--- NOTE | 2017-02-11 15:48 | Cardiology Report ---
APPROVED REPORT EKG Measurement Heart [id number] Normal sinus rhythm Normal ECG
[2017-02-11 16:00] VITALS: BP 136/68
--- NOTE | 2017-02-11 16:29 | Cardiology Report ---
APPROVED REPORT EKG Measurement Heart [id number] Normal sinus rhythm Prolonged QT Abnormal ECG
--- NOTE | 2017-02-11 19:07 | Cardiology Progress Note ---
Assessment/Plan Assessment/Plan 1. Alteration of mental status. 2. Acute hypoglycemic episode. 3. Elevated CPK with normal troponin. vital are fine telel neg repeat cpk adn trop in am dc tele tomorrow if trop ok Subjective Cardiovascular: Denies: chest pain, lightheadedness, palpitations Respiratory: Denies: shortness of breath Gastrointestinal/Abdominal: Denies: abdominal pain Genitourinary: Denies: burning Objective Last 24 Hour Vital Signs Date Time Temp Pulse Resp B/P (MAP) Pulse Ox O2 Delivery O2 Flow Rate FiO2 02/11/17 16:00 97.5 83 19 136/68 95 Room Air 02/11/17 12:00 98.4 89 19 140/80 94 Room Air 02/11/17 08:00 97.0 94 19 118/66 95 Room Air 02/11/17 08:00 91 02/11/17 07:42 82 18 Room Air 21 02/11/17 04:00 98.1 88 20 125/75 94 Room Air 21 02/11/17 04:00 89 02/11/17 04:00 88 91 02/11/17 00:00 95 02/11/17 00:00 98.1 100 18 115/67 94 Room Air 21 02/10/17 20:00 97.0 96 16 121/66 96 Room Air 21 02/10/17 20:00 93 02/10/17 19:30 94 18 Room Air 21 General Appearance: no apparent distress, alert Neck: supple Cardiovascular: normal rate, regular rhythm Respiratory/Chest: lungs clear, normal breath sounds Abdomen: normal bowel sounds, non tender, soft Extremities: no swelling Intake and Output 02/11/17 02/12/17 19:00 07:00 Intake Total 1080 ml Balance 1080 ml Intake Oral 1080 ml # Voids 2 Laboratory Tests Test 02/11/17 04:50 White Blood Count 7.1 K/UL (4.8-10.8) Red Blood Count 3.27 M/UL (4.20-5.40) L Hemoglobin 9.8 G/DL (12.0-16.0) L Hematocrit 29.8 % (37.0-47.0) L Mean Corpuscular Volume 91 FL (80-99) Mean Corpuscular Hemoglobin 30.1 PG (27.0-31.0) Mean Corpuscular Hemoglobin Concent 33.0 G/DL (32.0-36.0) Red Cell Distribution Width 12.7 % (11.6-14.8) Platelet Count 232 K/UL (150-450) Mean Platelet Volume 5.5 FL (6.5-10.1) L Neutrophils (%) (Auto) % (45.0-75.0) Lymphocytes (%) (Auto) % (20.0-45.0) Monocytes (%) (Auto) % (1.0-10.0) Eosinophils (%) (Auto) % (0.0-3.0) Basophils (%) (Auto) % (0.0-2.0) Differential Total Cells Counted 100 Neutrophils % (Manual) 73 % (45-75) Lymphocytes % (Manual) 21 % (20-45) Monocytes % (Manual) 5 % (1-10) Eosinophils % (Manual) 0 % (0-3) Basophils % (Manual) 1 % (0-2) Band Neutrophils 0 % (0-8) Platelet Estimate Adequate Platelet Morphology Normal Red Blood Cell Morphology Normal Erythrocyte Sedimentation Rate 58 MM/HR (0-42) H Reticulocyte Count 1.1 % (0.0-2.0) Prothrombin Time 10.1 SEC (9.30-11.50) Prothromb Time International Ratio 1.0 (0.9-1.1) Activated Partial Thromboplast Time 33 SEC (23-33) Sodium Level 143 mEQ/L (135-145) Potassium Level 3.8 mEQ/L (3.4-4.9) Chloride Level 108 mEQ/L (98-107) H Carbon Dioxide Level 23 mEQ/L (20-30) Anion Gap 12 (5-15) Blood Urea Nitrogen 38 mg/dL (7-23) H Creatinine 1.7 mg/dL (0.5-0.9) H Estimat Glomerular Filtration Rate mL/min (>60) Glucose Level 92 mg/dL (74-106) Calcium Level 9.0 mg/dL (8.6-10.2) Phosphorus Level 3.3 mg/dL (2.5-4.8) Magnesium Level 2.3 mg/dL (1.7-2.5) Iron Level 59 ug/dL (37-145) Total Iron Binding Capacity 264 ug/dL (250-400) Percent Iron Saturation 22 % (15-50) Unsaturated Iron Binding 205 ug/dL (112-346) Ferritin 330 ng/mL (13-150) H Total Bilirubin 0.5 mg/dL (0.0-1.2) Aspartate Amino Transf (AST/SGOT) 28 U/L (5-40) Alanine Aminotransferase (ALT/SGPT) 18 U/L (3-33) Alkaline Phosphatase 41 U/L (35-104) Lactate Dehydrogenase 245 U/L (135-230) H C-Reactive Protein, Quantitative 2.8 mg/dL (< 0.5) H Total Protein 6.0 g/dL (6.6-8.7) L Albumin 3.2 g/dL (3.5-5.2) L Globulin 2.8 g/dL Albumin/Globulin Ratio 1.1 (1.0-2.7) Carcinoembryonic Antigen 1.7 ng/mL Vitamin B12 Level 597 pg/mL (211-946) Folate Pending Microbiology Date/Time Source Procedure Growth Status 02/10/17 04:20 Wound Gram Stain - Final Resulted 02/10/17 04:20 Wound Culture - Preliminary Gram Negative Bacillus 1 Resulted LISA CHERRY Feb 11, 2017 19:07
--- NOTE | 2017-02-11 19:18 | Infectious Diseases Prog Note ---
Assessment/Plan Assessment/Plan ASSESSMENT: sepsis, r/o occult bacteremia leukocytosis, sp afebrile h/o L knee TKR R knee X ray consistent with h/o pseudogout (chondrocalcinosis); no effusion Delirium, possible underlying dementia U/A negative for UTI Symptomatic hypoglycemia, resolved mild rhabdomyolysis (CPK 499) Dehydration, improving Acute Kidney Injury secondary to prerenal azotemia, unchanged Sacral decubitus ulcer, cx pending onychomycosis uninfected R great toe abrasion, <1cm elevated anion gap (16) w/o acidosis, resolved venous stasis PLAN: --r/o occult bacteremia. f/u blood cx x2 (02/10) --f/u sacral wound cx --routine wound care --aspiration precautions --f/u CBC and bmp --continue renally dosed empiric IV vancomycin and cefepime 1gm q24hr D#2 Subjective ROS Limited/Unobtainable: Yes Allergies: Coded Allergies: NO KNOWN DRUG ALLERGIES (Unverified Allergy, Unknown, 02/10/17) Uncoded Allergies: NO KNOWN ALLERGY (Allergy, Unknown, 02/09/17) Objective Vital Signs Last 24 Hour Vital Signs Date Time Temp Pulse Resp B/P (MAP) Pulse Ox O2 Delivery O2 Flow Rate FiO2 02/11/17 16:00 97.5 83 19 136/68 95 Room Air 02/11/17 12:00 98.4 89 19 140/80 94 Room Air 02/11/17 08:00 97.0 94 19 118/66 95 Room Air 02/11/17 08:00 91 02/11/17 07:42 82 18 Room Air 21 02/11/17 04:00 98.1 88 20 125/75 94 Room Air 21 02/11/17 04:00 89 02/11/17 04:00 88 91 02/11/17 00:00 95 02/11/17 00:00 98.1 100 18 115/67 94 Room Air 21 02/10/17 20:00 97.0 96 16 121/66 96 Room Air 21 02/10/17 20:00 93 02/10/17 19:30 94 18 Room Air 21 Height (Feet): 5 Height (Inches): 0.00 Weight (Pounds): 114 Objective GEN: awake, alert, not oriented, non toxic appearing HEENT: Mild pale conjunctiva. oral mucosa dry, pharynx w/o exudate or effusion. No icterus. Head normocephalic, neck supple. NECK: No cervical LAD CHEST: Clear to auscultation bilaterally. HEART: S1 and S2, no murmurs, no rubs. ABDOMEN: soft, non tender, non distended, normoactive bowel sounds. EXTREMITIES: No cyanosis, no clubbing, no edema. L knee anterior scar well healed, no edema, no effusion, no warmth, no erythema. R knee w/o effusion but some warmth and tenderness to PROM. strength limited by pain. no pain to palpation of hip b/l. +onychomycosis. b/l pretibial spaces are hyperpigmented with a few healing scabs. abrasions c/w h/o mechanical fall. NEUROLOGIC: Awake, confused, perseverating [birth year]) no focal neurologic motor deficits. pain to palpation R knee : no villegas in place. no external genital lesions, no vulvovaginal candidiasis. LYMPH: no LAD RECTAL: deferred Microbiology Date/Time Source Procedure Growth Status 02/10/17 04:20 Wound Gram Stain - Final Resulted 02/10/17 04:20 Wound Culture - Preliminary Gram Negative Bacillus 1 Resulted Laboratory Tests Test 02/11/17 04:50 White Blood Count 7.1 K/UL (4.8-10.8) Red Blood Count 3.27 M/UL (4.20-5.40) L Hemoglobin 9.8 G/DL (12.0-16.0) L Hematocrit 29.8 % (37.0-47.0) L Mean Corpuscular Volume 91 FL (80-99) Mean Corpuscular Hemoglobin 30.1 PG (27.0-31.0) Mean Corpuscular Hemoglobin Concent 33.0 G/DL (32.0-36.0) Red Cell Distribution Width 12.7 % (11.6-14.8) Platelet Count 232 K/UL (150-450) Mean Platelet Volume 5.5 FL (6.5-10.1) L Neutrophils (%) (Auto) % (45.0-75.0) Lymphocytes (%) (Auto) % (20.0-45.0) Monocytes (%) (Auto) % (1.0-10.0) Eosinophils (%) (Auto) % (0.0-3.0) Basophils (%) (Auto) % (0.0-2.0) Differential Total Cells Counted 100 Neutrophils % (Manual) 73 % (45-75) Lymphocytes % (Manual) 21 % (20-45) Monocytes % (Manual) 5 % (1-10) Eosinophils % (Manual) 0 % (0-3) Basophils % (Manual) 1 % (0-2) Band Neutrophils 0 % (0-8) Platelet Estimate Adequate Platelet Morphology Normal Red Blood Cell Morphology Normal Erythrocyte Sedimentation Rate 58 MM/HR (0-42) H Reticulocyte Count 1.1 % (0.0-2.0) Prothrombin Time 10.1 SEC (9.30-11.50) Prothromb Time International Ratio 1.0 (0.9-1.1) Activated Partial Thromboplast Time 33 SEC (23-33) Sodium Level 143 mEQ/L (135-145) Potassium Level 3.8 mEQ/L (3.4-4.9) Chloride Level 108 mEQ/L (98-107) H Carbon Dioxide Level 23 mEQ/L (20-30) Anion Gap 12 (5-15) Blood Urea Nitrogen 38 mg/dL (7-23) H Creatinine 1.7 mg/dL (0.5-0.9) H Estimat Glomerular Filtration Rate mL/min (>60) Glucose Level 92 mg/dL (74-106) Calcium Level 9.0 mg/dL (8.6-10.2) Phosphorus Level 3.3 mg/dL (2.5-4.8) Magnesium Level 2.3 mg/dL (1.7-2.5) Iron Level 59 ug/dL (37-145) Total Iron Binding Capacity 264 ug/dL (250-400) Percent Iron Saturation 22 % (15-50) Unsaturated Iron Binding 205 ug/dL (112-346) Ferritin 330 ng/mL (13-150) H Total Bilirubin 0.5 mg/dL (0.0-1.2) Aspartate Amino Transf (AST/SGOT) 28 U/L (5-40) Alanine Aminotransferase (ALT/SGPT) 18 U/L (3-33) Alkaline Phosphatase 41 U/L (35-104) Lactate Dehydrogenase 245 U/L (135-230) H C-Reactive Protein, Quantitative 2.8 mg/dL (< 0.5) H Total Protein 6.0 g/dL (6.6-8.7) L Albumin 3.2 g/dL (3.5-5.2) L Globulin 2.8 g/dL Albumin/Globulin Ratio 1.1 (1.0-2.7) Carcinoembryonic Antigen 1.7 ng/mL Vitamin B12 Level 597 pg/mL (211-946) Folate Pending Current Medications Medications (Trade) Dose Ordered Sig/Reji Route PRN Reason Start Time Stop Time Status Last Admin Dose Admin Acetaminophen (Tylenol) 650 mg Q4H PRN ORAL fever 02/09/17 21:15 03/11/17 21:14 Albuterol/ Ipratropium (DuoNeb 0.5-3(2.5)mg/3ml) 3 ml Q4H PRN HHN Shortness of Breath 02/09/17 21:15 02/14/17 21:14 Cefepime HCl 1 gm/ Dextrose 55 ml @ 110 mls/hr Q24H IVPB 02/09/17 22:00 02/16/17 21:59 02/10/17 21:17 Dextrose (Dextrose 50%) STAT PRN IV Hypoglycemia 02/09/17 21:15 03/11/17 21:14 Heparin Sodium (Porcine) (Heparin 5000 units/ml) 5,000 units EVERY 12 HOURS SUBQ 02/10/17 09:00 03/12/17 08:59 02/11/17 08:14 Insulin Aspart (NovoLOG) BEFORE MEALS AND HS SUBQ 02/10/17 06:30 03/12/17 06:29 02/11/17 17:25 Morphine Sulfate (Morphine Sulfate) 2 mg Q4H PRN IVP Moderate Pain (Pain Scale 4-6) 02/09/17 21:15 02/16/17 21:14 Nitroglycerin (Ntg) 0.4 mg Q5M PRN SL Prn Chest Pain 02/09/17 21:15 03/11/17 21:14 Ondansetron HCl (Zofran) 4 mg Q6H PRN IVP Nausea & Vomiting 02/09/17 21:15 03/11/17 21:14 Polyethylene Glycol (Miralax) 17 gm DAILYPRN PRN ORAL Constipation 02/09/17 21:15 03/11/17 21:14 Quetiapine Fumarate (SEROquel) 12.5 mg Q4H PRN ORAL agitation 02/10/17 15:15 03/12/17 15:14 Sodium Chloride 1,000 ml @ 100 mls/hr Q10H IV 02/11/17 11:45 03/13/17 11:44 02/11/17 12:10 Temazepam (Restoril) 15 mg HSPRN PRN ORAL Insomnia 02/09/17 21:15 02/16/17 21:14 Vancomycin HCl (Vanco rx to dose) 1 ea DAILY PRN MISC PER RX PROTOCOL 02/09/17 21:30 03/11/17 21:29 Vancomycin/Sodium Chloride 250 ml @ 166.667 mls/hr Q48H IVPB 02/11/17 23:00 02/16/17 22:59 Pratik Dumont M.D. Feb 11, 2017 19:18
[2017-02-11 20:00] VITALS: BP 137/67
[2017-02-11] MEDS: Cefepime 1gm/D5W 55ml IVPB SCH ×2 (21:33)
[2017-02-11] MEDS ORDERED: Vancomycin 750mg/NS 250ml IVPB SCH (23:00)
[2017-02-12] VITALS: BP 120/61
[2017-02-12 04:00] VITALS: BP 129/62
[2017-02-12] MEDS: NovoLOG Insulin Flexpen SUBQ SCH ×4 (06:14→21:07)
[2017-02-12 07:38] VITALS: BP 142/75
[2017-02-12 07:55] LABS: OTHERS PATHOLOGIST COMMENT
[2017-02-12 08:50] LABS: EOSINOPHILS % (AUTO) 0.9 % (0.0-3.0); LYMPHOCYTES % (AUTO) 18.8 % (20.0-45.0); MEAN CORPUSCULAR HEMOGLOBIN 30.8 PG (27.0-31.0); MEAN CORPUSCULAR HGB CONC 33.4 G/DL (32.0-36.0); MEAN CORPUSCULAR VOLUME 92 FL (80-99); MEAN PLATELET VOLUME 5.4 FL (6.5-10.1); MONOCYTES % (AUTO) 7.3 % (1.0-10.0); NEUTROPHILS % (AUTO) 71.9 % (45.0-75.0); PLATELET COUNT 227 K/UL (150-450); RED BLOOD COUNT 3.32 M/UL (4.20-5.40); RED CELL DISTRIBUTION WIDTH 12.3 % (11.6-14.8); WHITE BLOOD COUNT 6.7 K/UL (4.8-10.8)
[2017-02-12] MEDS: Heparin 5000 units/ml inj SUBQ SCH ×2 (08:50→21:08)
[2017-02-12 09:24] LABS: TROPONIN I < 0.30 ng/mL (<=0.30)
[2017-02-12 10:06] LABS: ALANINE AMINOTRANSFERASE 18 U/L (3-33); ALBUMIN/GLOBULIN RATIO 1.2 (1.0-2.7); ANION GAP 10 (5-15); ASPARTATE AMINO TRANSFERASE 24 U/L (5-40); CALCIUM 8.4 mg/dL (8.6-10.2); CARBON DIOXIDE 23 mEQ/L (20-30); CHLORIDE 104 mEQ/L (98-107); CHOLESTEROL 151 mg/dL (< 200); CHOLESTEROL/HDL RATIO 3.1 (3.3-4.4); CREATININE 1.4 mg/dL (0.5-0.9); HEMOLYSIS 8; LDL CHOLESTEROL (CALC.) 66 mg/dL (60-99); MAGNESIUM 2.1 mg/dL (1.7-2.5); PHOSPHORUS 2.5 mg/dL (2.5-4.8); POTASSIUM 4.2 mEQ/L (3.4-4.9); SODIUM 137 mEQ/L (135-145); TOTAL PROTEIN 5.5 g/dL (6.6-8.7); URIC ACID 5.3 mg/dL (3.0-7.5)
[2017-02-12 10:08] LABS: HEMOGLOBIN A1C 7.7 % (< 6.0)
[2017-02-12 11:29] VITALS: BP 120/64
--- NOTE | 2017-02-12 13:05 | Pulmonology Progress Note ---
Assessment/Plan Problems: (1) Altered level of consciousness (2) ATN (acute tubular necrosis) (3) Hypoglycemia (4) Hypernatremia (5) Diabetes mellitus Assessment/Plan pt ot notes reviewed pt seems to be unsafe to go home wbc normal afebrile sliding scale pt/ot social service consult Subjective ROS Limited/Unobtainable: No Constitutional: Reports: no symptoms HEENT: Repors: no symptoms Respiratory: Reports: no symptoms Cardiovascular: Reports: no symptoms Allergies: Coded Allergies: NO KNOWN DRUG ALLERGIES (Unverified Allergy, Unknown, 02/10/17) Uncoded Allergies: NO KNOWN ALLERGY (Allergy, Unknown, 02/09/17) Objective Last 24 Hour Vital Signs Date Time Temp Pulse Resp B/P (MAP) Pulse Ox O2 Delivery O2 Flow Rate FiO2 02/12/17 11:29 97.1 86 18 120/64 97 Room Air 02/12/17 07:38 96.3 88 18 142/75 96 Room Air 02/12/17 06:41 88 17 Room Air 02/12/17 04:00 97.9 77 21 129/62 95 Room Air 02/12/17 00:00 97.5 75 22 120/61 95 Room Air 02/11/17 20:03 84 18 Room Air 21 02/11/17 20:00 97.9 79 20 137/67 95 Room Air 02/11/17 16:00 97.5 83 19 136/68 95 Room Air Intake and Output 02/12/17 02/13/17 19:00 07:00 Intake Total 240 ml Balance 240 ml Intake Oral 240 ml # Voids 1 General Appearance: WD/WN HEENT: normocephalic, atraumatic Respiratory/Chest: chest wall non-tender, lungs clear Breasts: no masses Cardiovascular: normal peripheral pulses, normal rate Abdomen: normal bowel sounds, soft, non tender Skin: no rash 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, normal mood/affect Lymphatic: no groin adenopathy Musculoskeletal: normal muscle bulk Microbiology Date/Time Source Procedure Growth Status 02/10/17 16:20 Blood Blood Culture - Preliminary NO GROWTH AFTER 24 HOURS Resulted 02/10/17 16:10 Blood Blood Culture - Preliminary NO GROWTH AFTER 24 HOURS Resulted 02/10/17 04:20 Wound Gram Stain - Final Resulted 02/10/17 04:20 Wound Culture - Preliminary Acinetobacter Baumannii Complx Strep Species, Gamma-Hemolytic Staphylococcus Aureus Resulted Laboratory Tests 02/12/17 07:40: White Blood Count 6.7, Red Blood Count 3.32L, Hemoglobin 10.2L, Hematocrit 30.6L , Mean Corpuscular Volume 92, Mean Corpuscular Hemoglobin 30.8, Mean Corpuscular Hemoglobin Concent 33.4, Red Cell Distribution Width 12.3, Platelet Count 227, Mean Platelet Volume 5.4L, Neutrophils (%) (Auto) 71.9, Lymphocytes ( %) (Auto) 18.8L, Monocytes (%) (Auto) 7.3, Eosinophils (%) (Auto) 0.9, Basophils (%) (Auto) 1.0, Sodium Level 137, Potassium Level 4.2, Chloride Level 104, Carbon Dioxide Level 23, Anion Gap 10, Blood Urea Nitrogen 33H, Creatinine 1.4H, Estimat Glomerular Filtration Rate , Glucose Level 183H, Hemoglobin A1c 7.7H, Uric Acid 5.3, Calcium Level 8.4L, Phosphorus Level 2.5, Magnesium Level 2.1, Total Bilirubin 0.5, Gamma Glutamyl Transpeptidase 10, Aspartate Amino Transf (AST/SGOT) 24, Alanine Aminotransferase (ALT/SGPT) 18, Alkaline Phosphatase 33L, Total Creatine Kinase 57, Troponin I < 0.30, Pro-B-Type Natriuretic Peptide 388, Total Protein 5.5L, Albumin 3.1L, Globulin 2.4, Albumin /Globulin Ratio 1.2, Triglycerides Level 186H, Cholesterol Level 151, LDL Cholesterol 66, HDL Cholesterol 48, Cholesterol/HDL Ratio 3.1L, Thyroid Stimulating Hormone (TSH) 2.010 Current Medications Medications (Trade) Dose Ordered Sig/Reji Route PRN Reason Start Time Stop Time Status Last Admin Dose Admin Acetaminophen (Tylenol) 650 mg Q4H PRN ORAL fever 02/09/17 21:15 03/11/17 21:14 Albuterol/ Ipratropium (DuoNeb 0.5-3(2.5)mg/3ml) 3 ml Q4H PRN HHN Shortness of Breath 02/09/17 21:15 02/14/17 21:14 Cefepime HCl 1 gm/ Dextrose 55 ml @ 110 mls/hr Q24H IVPB 02/09/17 22:00 02/16/17 21:59 02/11/17 21:33 Dextrose (Dextrose 50%) STAT PRN IV Hypoglycemia 02/09/17 21:15 03/11/17 21:14 Heparin Sodium (Porcine) (Heparin 5000 units/ml) 5,000 units EVERY 12 HOURS SUBQ 02/10/17 09:00 03/12/17 08:59 02/12/17 08:50 Insulin Aspart (NovoLOG) BEFORE MEALS AND HS SUBQ 02/10/17 06:30 03/12/17 06:29 02/12/17 12:33 Morphine Sulfate (Morphine Sulfate) 2 mg Q4H PRN IVP Moderate Pain (Pain Scale 4-6) 02/09/17 21:15 02/16/17 21:14 Nitroglycerin (Ntg) 0.4 mg Q5M PRN SL Prn Chest Pain 02/09/17 21:15 03/11/17 21:14 Ondansetron HCl (Zofran) 4 mg Q6H PRN IVP Nausea & Vomiting 02/09/17 21:15 03/11/17 21:14 Polyethylene Glycol (Miralax) 17 gm DAILYPRN PRN ORAL Constipation 02/09/17 21:15 03/11/17 21:14 Quetiapine Fumarate (SEROquel) 12.5 mg Q4H PRN ORAL agitation 02/10/17 15:15 03/12/17 15:14 Temazepam (Restoril) 15 mg HSPRN PRN ORAL Insomnia 02/09/17 21:15 02/16/17 21:14 Vancomycin HCl (Vanco rx to dose) 1 ea DAILY PRN MISC PER RX PROTOCOL 02/09/17 21:30 03/11/17 21:29 Vancomycin/Sodium Chloride 250 ml @ 166.667 mls/hr Q48H IVPB 02/11/17 23:00 02/16/17 22:59 02/11/17 22:52 CLARISSA WAGGONER Feb 12, 2017 13:05
--- NOTE | 2017-02-12 15:05 | General Progress Note ---
Assessment/Plan Status: stable Status Narrative Cr 1.7 down to 1.4 Assessment/Plan status; Acute Renal Failure- Dehydration- HyperNatremia Encephalopathy- DM , present with low sugar Plan: Slow hydrate- Keep BP and BS in check per orders Avoid nephrotoxics monitor renal parameters Subjective ROS Limited/Unobtainable: No Constitutional: Reports: malaise, weakness Allergies: Coded Allergies: NO KNOWN DRUG ALLERGIES (Unverified Allergy, Unknown, 02/10/17) Uncoded Allergies: NO KNOWN ALLERGY (Allergy, Unknown, 02/09/17) Objective Last 24 Hour Vital Signs Date Time Temp Pulse Resp B/P (MAP) Pulse Ox O2 Delivery O2 Flow Rate FiO2 02/12/17 11:29 97.1 86 18 120/64 97 Room Air 02/12/17 07:38 96.3 88 18 142/75 96 Room Air 02/12/17 06:41 88 17 Room Air 02/12/17 04:00 97.9 77 21 129/62 95 Room Air 02/12/17 00:00 97.5 75 22 120/61 95 Room Air 02/11/17 20:03 84 18 Room Air 21 02/11/17 20:00 97.9 79 20 137/67 95 Room Air 02/11/17 16:00 97.5 83 19 136/68 95 Room Air Intake and Output 02/12/17 02/13/17 19:00 07:00 Intake Total 240 ml Balance 240 ml Intake Oral 240 ml # Voids 1 Laboratory Tests 02/12/17 07:40: White Blood Count 6.7, Red Blood Count 3.32L, Hemoglobin 10.2L, Hematocrit 30.6L , Mean Corpuscular Volume 92, Mean Corpuscular Hemoglobin 30.8, Mean Corpuscular Hemoglobin Concent 33.4, Red Cell Distribution Width 12.3, Platelet Count 227, Mean Platelet Volume 5.4L, Neutrophils (%) (Auto) 71.9, Lymphocytes ( %) (Auto) 18.8L, Monocytes (%) (Auto) 7.3, Eosinophils (%) (Auto) 0.9, Basophils (%) (Auto) 1.0, Sodium Level 137, Potassium Level 4.2, Chloride Level 104, Carbon Dioxide Level 23, Anion Gap 10, Blood Urea Nitrogen 33H, Creatinine 1.4H, Estimat Glomerular Filtration Rate , Glucose Level 183H, Hemoglobin A1c 7.7H, Uric Acid 5.3, Calcium Level 8.4L, Phosphorus Level 2.5, Magnesium Level 2.1, Total Bilirubin 0.5, Gamma Glutamyl Transpeptidase 10, Aspartate Amino Transf (AST/SGOT) 24, Alanine Aminotransferase (ALT/SGPT) 18, Alkaline Phosphatase 33L, Total Creatine Kinase 57, Troponin I < 0.30, Pro-B-Type Natriuretic Peptide 388, Total Protein 5.5L, Albumin 3.1L, Globulin 2.4, Albumin /Globulin Ratio 1.2, Triglycerides Level 186H, Cholesterol Level 151, LDL Cholesterol 66, HDL Cholesterol 48, Cholesterol/HDL Ratio 3.1L, Thyroid Stimulating Hormone (TSH) 2.010 Height (Feet): 5 Height (Inches): 0.00 Weight (Pounds): 114 General Appearance: no apparent distress Objective PE not changed ANDREW LEY Feb 12, 2017 15:05
[2017-02-12 16:00] VITALS: BP 146/78
[2017-02-12] MEDS ORDERED: Tubing IV Secondary IV ONE (16:12)
[2017-02-12] MEDS ORDERED: NS 275ml ONE (16:12)
[2017-02-12] MEDS ORDERED: 1/2 NS 1000ml IV ONE (16:12)
--- NOTE | 2017-02-12 19:23 | Infectious Diseases Prog Note ---
Assessment/Plan Assessment/Plan ASSESSMENT: Rt leg Cellulitis sepsis, r/o occult bacteremia leukocytosis, sp afebrile h/o L knee TKR R knee X ray consistent with h/o pseudogout (chondrocalcinosis); no effusion Delirium, possible underlying dementia U/A negative for UTI Symptomatic hypoglycemia, resolved mild rhabdomyolysis (CPK 499) Dehydration, improving Acute Kidney Injury secondary to prerenal azotemia, unchanged Sacral decubitus ulcer, cx pending onychomycosis uninfected R great toe abrasion, <1cm elevated anion gap (16) w/o acidosis, resolved venous stasis PLAN: --continue renally dosed empiric IV vancomycin and cefepime 1gm q24hr D# 3 --r/o occult bacteremia. f/u blood cx x2 (02/10) --f/u sacral wound cx --routine wound care --aspiration precautions --f/u CBC and bmp Subjective Constitutional: Denies: no symptoms, fever, chills, fatigue, anorexia, drenching sweats, other Allergies: Coded Allergies: NO KNOWN DRUG ALLERGIES (Unverified Allergy, Unknown, 02/10/17) Objective Vital Signs Last 24 Hour Vital Signs Date Time Temp Pulse Resp B/P (MAP) Pulse Ox O2 Delivery O2 Flow Rate FiO2 02/12/17 16:00 98.5 81 18 146/78 97 Room Air 02/12/17 11:29 97.1 86 18 120/64 97 Room Air 02/12/17 07:38 96.3 88 18 142/75 96 Room Air 02/12/17 06:41 88 17 Room Air 02/12/17 04:00 97.9 77 21 129/62 95 Room Air 02/12/17 00:00 97.5 75 22 120/61 95 Room Air 02/11/17 20:03 84 18 Room Air 21 02/11/17 20:00 97.9 79 20 137/67 95 Room Air Height (Feet): 5 Height (Inches): 0.00 Weight (Pounds): 114 HEENT: anicteric Respiratory/Chest: no respiratory distress Cardiovascular: regularly irregular Abdomen: no organomegaly Microbiology Date/Time Source Procedure Growth Status 02/10/17 16:20 Blood Blood Culture - Preliminary NO GROWTH AFTER 24 HOURS Resulted 02/10/17 16:10 Blood Blood Culture - Preliminary NO GROWTH AFTER 24 HOURS Resulted 02/10/17 04:20 Wound Gram Stain - Final Resulted 02/10/17 04:20 Wound Culture - Preliminary Acinetobacter Baumannii Complx Strep Species, Gamma-Hemolytic Staphylococcus Aureus Resulted Laboratory Tests Test 02/12/17 07:40 White Blood Count 6.7 K/UL (4.8-10.8) Red Blood Count 3.32 M/UL (4.20-5.40) L Hemoglobin 10.2 G/DL (12.0-16.0) L Hematocrit 30.6 % (37.0-47.0) L Mean Corpuscular Volume 92 FL (80-99) Mean Corpuscular Hemoglobin 30.8 PG (27.0-31.0) Mean Corpuscular Hemoglobin Concent 33.4 G/DL (32.0-36.0) Red Cell Distribution Width 12.3 % (11.6-14.8) Platelet Count 227 K/UL (150-450) Mean Platelet Volume 5.4 FL (6.5-10.1) L Neutrophils (%) (Auto) 71.9 % (45.0-75.0) Lymphocytes (%) (Auto) 18.8 % (20.0-45.0) L Monocytes (%) (Auto) 7.3 % (1.0-10.0) Eosinophils (%) (Auto) 0.9 % (0.0-3.0) Basophils (%) (Auto) 1.0 % (0.0-2.0) Sodium Level 137 mEQ/L (135-145) Potassium Level 4.2 mEQ/L (3.4-4.9) Chloride Level 104 mEQ/L (98-107) Carbon Dioxide Level 23 mEQ/L (20-30) Anion Gap 10 (5-15) Blood Urea Nitrogen 33 mg/dL (7-23) H Creatinine 1.4 mg/dL (0.5-0.9) H Estimat Glomerular Filtration Rate mL/min (>60) Glucose Level 183 mg/dL (74-106) H Hemoglobin A1c 7.7 % (< 6.0) H Uric Acid 5.3 mg/dL (3.0-7.5) Calcium Level 8.4 mg/dL (8.6-10.2) L Phosphorus Level 2.5 mg/dL (2.5-4.8) Magnesium Level 2.1 mg/dL (1.7-2.5) Total Bilirubin 0.5 mg/dL (0.0-1.2) Gamma Glutamyl Transpeptidase 10 U/L (5-36) Aspartate Amino Transf (AST/SGOT) 24 U/L (5-40) Alanine Aminotransferase (ALT/SGPT) 18 U/L (3-33) Alkaline Phosphatase 33 U/L (35-104) L Total Creatine Kinase 57 U/L (26-140) Troponin I < 0.30 ng/mL (<=0.30) Pro-B-Type Natriuretic Peptide 388 pg/mL (0-450) Total Protein 5.5 g/dL (6.6-8.7) L Albumin 3.1 g/dL (3.5-5.2) L Globulin 2.4 g/dL Albumin/Globulin Ratio 1.2 (1.0-2.7) Triglycerides Level 186 mg/dL (< 150) H Cholesterol Level 151 mg/dL (< 200) LDL Cholesterol 66 mg/dL (60-99) HDL Cholesterol 48 mg/dL (> 60) Cholesterol/HDL Ratio 3.1 (3.3-4.4) L Thyroid Stimulating Hormone (TSH) 2.010 uIU/mL (0.300-4.500) Current Medications Medications (Trade) Dose Ordered Sig/Reji Route PRN Reason Start Time Stop Time Status Last Admin Dose Admin Acetaminophen (Tylenol) 650 mg Q4H PRN ORAL fever 02/09/17 21:15 03/11/17 21:14 Albuterol/ Ipratropium (DuoNeb 0.5-3(2.5)mg/3ml) 3 ml Q4H PRN HHN Shortness of Breath 02/09/17 21:15 02/14/17 21:14 Cefepime HCl 1 gm/ Dextrose 55 ml @ 110 mls/hr Q24H IVPB 02/09/17 22:00 02/16/17 21:59 02/11/17 21:33 Dextrose (Dextrose 50%) STAT PRN IV Hypoglycemia 02/09/17 21:15 03/11/17 21:14 Heparin Sodium (Porcine) (Heparin 5000 units/ml) 5,000 units EVERY 12 HOURS SUBQ 02/10/17 09:00 03/12/17 08:59 02/12/17 08:50 Insulin Aspart (NovoLOG) BEFORE MEALS AND HS SUBQ 02/10/17 06:30 03/12/17 06:29 02/12/17 16:35 Lansoprazole (Prevacid) 30 mg DAILY ORAL 02/12/17 16:00 03/14/17 15:59 02/12/17 16:34 Morphine Sulfate (Morphine Sulfate) 2 mg Q4H PRN IVP Moderate Pain (Pain Scale 4-6) 02/09/17 21:15 02/16/17 21:14 Nitroglycerin (Ntg) 0.4 mg Q5M PRN SL Prn Chest Pain 02/09/17 21:15 03/11/17 21:14 Ondansetron HCl (Zofran) 4 mg Q6H PRN IVP Nausea & Vomiting 02/09/17 21:15 03/11/17 21:14 Polyethylene Glycol (Miralax) 17 gm DAILYPRN PRN ORAL Constipation 02/09/17 21:15 03/11/17 21:14 Quetiapine Fumarate (SEROquel) 12.5 mg Q4H PRN ORAL agitation 02/10/17 15:15 03/12/17 15:14 Temazepam (Restoril) 15 mg HSPRN PRN ORAL Insomnia 02/09/17 21:15 02/16/17 21:14 Vancomycin HCl (Vanco rx to dose) 1 ea DAILY PRN MISC PER RX PROTOCOL 02/09/17 21:30 03/11/17 21:29 Vancomycin/Sodium Chloride 250 ml @ 166.667 mls/hr Q48H IVPB 02/11/17 23:00 02/16/17 22:59 02/11/17 22:52 SHOAIB TREVINO M.D. Feb 12, 2017 19:23
--- NOTE | 2017-02-12 19:45 | Cardiology Progress Note ---
Assessment/Plan Assessment/Plan 1. Alteration of mental status. 2. Acute hypoglycemic episode. 3. Elevated CPK with normal troponin. vital are fine telel neg still repeat cpk adn trop are normla dc tele Subjective Cardiovascular: Denies: chest pain Objective Last 24 Hour Vital Signs Date Time Temp Pulse Resp B/P (MAP) Pulse Ox O2 Delivery O2 Flow Rate FiO2 02/12/17 16:00 98.5 81 18 146/78 97 Room Air 02/12/17 11:29 97.1 86 18 120/64 97 Room Air 02/12/17 07:38 96.3 88 18 142/75 96 Room Air 02/12/17 06:41 88 17 Room Air 02/12/17 04:00 97.9 77 21 129/62 95 Room Air 02/12/17 00:00 97.5 75 22 120/61 95 Room Air 02/11/17 20:03 84 18 Room Air 21 02/11/17 20:00 97.9 79 20 137/67 95 Room Air General Appearance: no apparent distress, alert Intake and Output 02/12/17 02/13/17 19:00 07:00 Intake Total 740 ml Balance 740 ml Intake Oral 740 ml # Voids 2 Laboratory Tests Test 02/12/17 07:40 White Blood Count 6.7 K/UL (4.8-10.8) Red Blood Count 3.32 M/UL (4.20-5.40) L Hemoglobin 10.2 G/DL (12.0-16.0) L Hematocrit 30.6 % (37.0-47.0) L Mean Corpuscular Volume 92 FL (80-99) Mean Corpuscular Hemoglobin 30.8 PG (27.0-31.0) Mean Corpuscular Hemoglobin Concent 33.4 G/DL (32.0-36.0) Red Cell Distribution Width 12.3 % (11.6-14.8) Platelet Count 227 K/UL (150-450) Mean Platelet Volume 5.4 FL (6.5-10.1) L Neutrophils (%) (Auto) 71.9 % (45.0-75.0) Lymphocytes (%) (Auto) 18.8 % (20.0-45.0) L Monocytes (%) (Auto) 7.3 % (1.0-10.0) Eosinophils (%) (Auto) 0.9 % (0.0-3.0) Basophils (%) (Auto) 1.0 % (0.0-2.0) Sodium Level 137 mEQ/L (135-145) Potassium Level 4.2 mEQ/L (3.4-4.9) Chloride Level 104 mEQ/L (98-107) Carbon Dioxide Level 23 mEQ/L (20-30) Anion Gap 10 (5-15) Blood Urea Nitrogen 33 mg/dL (7-23) H Creatinine 1.4 mg/dL (0.5-0.9) H Estimat Glomerular Filtration Rate mL/min (>60) Glucose Level 183 mg/dL (74-106) H Hemoglobin A1c 7.7 % (< 6.0) H Uric Acid 5.3 mg/dL (3.0-7.5) Calcium Level 8.4 mg/dL (8.6-10.2) L Phosphorus Level 2.5 mg/dL (2.5-4.8) Magnesium Level 2.1 mg/dL (1.7-2.5) Total Bilirubin 0.5 mg/dL (0.0-1.2) Gamma Glutamyl Transpeptidase 10 U/L (5-36) Aspartate Amino Transf (AST/SGOT) 24 U/L (5-40) Alanine Aminotransferase (ALT/SGPT) 18 U/L (3-33) Alkaline Phosphatase 33 U/L (35-104) L Total Creatine Kinase 57 U/L (26-140) Troponin I < 0.30 ng/mL (<=0.30) Pro-B-Type Natriuretic Peptide 388 pg/mL (0-450) Total Protein 5.5 g/dL (6.6-8.7) L Albumin 3.1 g/dL (3.5-5.2) L Globulin 2.4 g/dL Albumin/Globulin Ratio 1.2 (1.0-2.7) Triglycerides Level 186 mg/dL (< 150) H Cholesterol Level 151 mg/dL (< 200) LDL Cholesterol 66 mg/dL (60-99) HDL Cholesterol 48 mg/dL (> 60) Cholesterol/HDL Ratio 3.1 (3.3-4.4) L Thyroid Stimulating Hormone (TSH) 2.010 uIU/mL (0.300-4.500) Microbiology Date/Time Source Procedure Growth Status 02/10/17 16:20 Blood Blood Culture - Preliminary NO GROWTH AFTER 24 HOURS Resulted 02/10/17 16:10 Blood Blood Culture - Preliminary NO GROWTH AFTER 24 HOURS Resulted 02/10/17 04:20 Wound Gram Stain - Final Resulted 02/10/17 04:20 Wound Culture - Preliminary Acinetobacter Baumannii Complx Strep Species, Gamma-Hemolytic Staphylococcus Aureus Resulted LISA CHERRY Feb 12, 2017 19:45
[2017-02-12 20:00] VITALS: BP 135/67
[2017-02-12] MEDS: Cefepime 1gm/D5W 55ml IVPB SCH ×2 (22:05)
--- NOTE | 2017-02-12 22:50 | General Progress Note ---
Assessment/Plan Status: stable, progressing Subjective Allergies: Coded Allergies: NO KNOWN DRUG ALLERGIES (Unverified Allergy, Unknown, 02/10/17) Subjective the pt was calm. more engaged. talkative, decrease agitation. calm.. less confused. Objective Last 24 Hour Vital Signs Date Time Temp Pulse Resp B/P (MAP) Pulse Ox O2 Delivery O2 Flow Rate FiO2 02/12/17 19:42 87 18 Room Air 02/12/17 16:00 98.5 81 18 146/78 97 Room Air 02/12/17 11:29 97.1 86 18 120/64 97 Room Air 02/12/17 07:38 96.3 88 18 142/75 96 Room Air 02/12/17 06:41 88 17 Room Air 02/12/17 04:00 97.9 77 21 129/62 95 Room Air 02/12/17 00:00 97.5 75 22 120/61 95 Room Air Intake and Output 02/12/17 02/13/17 19:00 07:00 Intake Total 740 ml Balance 740 ml Intake Oral 740 ml # Voids 2 Laboratory Tests 02/12/17 07:40: White Blood Count 6.7, Red Blood Count 3.32L, Hemoglobin 10.2L, Hematocrit 30.6L , Mean Corpuscular Volume 92, Mean Corpuscular Hemoglobin 30.8, Mean Corpuscular Hemoglobin Concent 33.4, Red Cell Distribution Width 12.3, Platelet Count 227, Mean Platelet Volume 5.4L, Neutrophils (%) (Auto) 71.9, Lymphocytes ( %) (Auto) 18.8L, Monocytes (%) (Auto) 7.3, Eosinophils (%) (Auto) 0.9, Basophils (%) (Auto) 1.0, Sodium Level 137, Potassium Level 4.2, Chloride Level 104, Carbon Dioxide Level 23, Anion Gap 10, Blood Urea Nitrogen 33H, Creatinine 1.4H, Estimat Glomerular Filtration Rate , Glucose Level 183H, Hemoglobin A1c 7.7H, Uric Acid 5.3, Calcium Level 8.4L, Phosphorus Level 2.5, Magnesium Level 2.1, Total Bilirubin 0.5, Gamma Glutamyl Transpeptidase 10, Aspartate Amino Transf (AST/SGOT) 24, Alanine Aminotransferase (ALT/SGPT) 18, Alkaline Phosphatase 33L, Total Creatine Kinase 57, Troponin I < 0.30, Pro-B-Type Natriuretic Peptide 388, Total Protein 5.5L, Albumin 3.1L, Globulin 2.4, Albumin /Globulin Ratio 1.2, Triglycerides Level 186H, Cholesterol Level 151, LDL Cholesterol 66, HDL Cholesterol 48, Cholesterol/HDL Ratio 3.1L, Thyroid Stimulating Hormone (TSH) 2.010 Height (Feet): 5 Height (Inches): 0.00 Weight (Pounds): 114 General Appearance: no apparent distress, alert, thin Neurologic: alert, responsive, normal mood/affect Ant Jackman M.D. Feb 12, 2017 22:50
[2017-02-13] VITALS: BP 147/80
[2017-02-13 04:00] VITALS: BP 146/99
[2017-02-13] MEDS: NovoLOG Insulin Flexpen SUBQ SCH ×2 (06:35→12:37)
[2017-02-13 08:00] VITALS: BP 145/76
--- NOTE | 2017-02-13 09:33 | General Progress Note ---
Assessment/Plan Status: stable Assessment/Plan status; Acute Renal Failure- Dehydration- HyperNatremia Encephalopathy- DM , present with low sugar Plan: no labs today Slow hydrate- Keep BP and BS in check per orders Avoid nephrotoxics monitor renal parameters Subjective ROS Limited/Unobtainable: No Constitutional: Reports: malaise Allergies: Coded Allergies: NO KNOWN DRUG ALLERGIES (Unverified Allergy, Unknown, 02/10/17) Objective Last 24 Hour Vital Signs Date Time Temp Pulse Resp B/P (MAP) Pulse Ox O2 Delivery O2 Flow Rate FiO2 02/13/17 06:00 88 91 95 02/13/17 04:00 98.6 98 20 146/99 97 02/13/17 00:00 97.0 70 18 147/80 98 Room Air 02/12/17 20:00 97.7 81 20 135/67 98 Room Air 02/12/17 19:42 87 18 Room Air 02/12/17 16:00 98.5 81 18 146/78 97 Room Air 02/12/17 11:29 97.1 86 18 120/64 97 Room Air Height (Feet): 5 Height (Inches): 0.00 Weight (Pounds): 114 General Appearance: no apparent distress Objective PE not changed ANDREW LEY Feb 13, 2017 09:33
[2017-02-13] MEDS: Heparin 5000 units/ml inj SUBQ SCH (09:57)
[2017-02-13 12:00] VITALS: BP 116/64
[2017-02-13] MEDS ORDERED: NOVOLOG100 UNITS1 SUBQ (14:01)
[2017-02-13] MEDS ORDERED: SEROQUEL25 MG ORAL (14:01)
--- NOTE | 2017-02-13 14:59 | Pulmonology Progress Note ---
Assessment/Plan Problems: (1) Altered level of consciousness (2) ATN (acute tubular necrosis) (3) Hypoglycemia (4) Hypernatremia (5) Diabetes mellitus Assessment/Plan all notes reviewed pt seems to be unsafe to go home, pt went home with notification of APS and child care center administrator w[facility] normal social service consult Subjective ROS Limited/Unobtainable: No Constitutional: Reports: no symptoms HEENT: Repors: no symptoms Cardiovascular: Reports: no symptoms Allergies: Coded Allergies: NO KNOWN DRUG ALLERGIES (Unverified Allergy, Unknown, 02/10/17) Objective Last 24 Hour Vital Signs Date Time Temp Pulse Resp B/P (MAP) Pulse Ox O2 Delivery O2 Flow Rate FiO2 02/13/17 12:00 97.3 105 22 116/64 99 Room Air 02/13/17 12:00 105 110 02/13/17 10:00 89 100 02/13/17 08:02 82 18 Room Air 02/13/17 08:00 81 76 02/13/17 08:00 96.4 19 145/76 100 Room Air 02/13/17 06:00 88 91 95 02/13/17 04:00 98.6 98 20 146/99 97 02/13/17 00:00 97.0 70 18 147/80 98 Room Air 02/12/17 20:00 97.7 81 20 135/67 98 Room Air 02/12/17 19:42 87 18 Room Air 02/12/17 16:00 98.5 81 18 146/78 97 Room Air General Appearance: WD/WN HEENT: normocephalic, atraumatic Respiratory/Chest: chest wall non-tender, lungs clear Breasts: no masses Cardiovascular: normal peripheral pulses Abdomen: normal bowel sounds, soft, non tender Genitourinary: normal external genitalia Skin: no rash 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 normal Microbiology Date/Time Source Procedure Growth Status 02/10/17 16:20 Blood Blood Culture - Preliminary NO GROWTH AFTER 48 HOURS Resulted 02/10/17 16:10 Blood Blood Culture - Preliminary NO GROWTH AFTER 48 HOURS Resulted Current Medications Medications (Trade) Dose Ordered Sig/Reji Route PRN Reason Start Time Stop Time Status Last Admin Dose Admin Acetaminophen (Tylenol) 650 mg Q4H PRN ORAL fever 02/09/17 21:15 03/11/17 21:14 Albuterol/ Ipratropium (DuoNeb 0.5-3(2.5)mg/3ml) 3 ml Q4H PRN HHN Shortness of Breath 02/09/17 21:15 02/14/17 21:14 Cefepime HCl 1 gm/ Dextrose 55 ml @ 110 mls/hr Q24H IVPB 02/09/17 22:00 02/16/17 21:59 02/12/17 22:05 Dextrose (Dextrose 50%) STAT PRN IV Hypoglycemia 02/09/17 21:15 03/11/17 21:14 Heparin Sodium (Porcine) (Heparin 5000 units/ml) 5,000 units EVERY 12 HOURS SUBQ 02/10/17 09:00 03/12/17 08:59 02/13/17 09:57 Insulin Aspart (NovoLOG) BEFORE MEALS AND HS SUBQ 02/10/17 06:30 03/12/17 06:29 02/13/17 12:37 Morphine Sulfate (Morphine Sulfate) 2 mg Q4H PRN IVP Moderate Pain (Pain Scale 4-6) 02/09/17 21:15 02/16/17 21:14 Nitroglycerin (Ntg) 0.4 mg Q5M PRN SL Prn Chest Pain 02/09/17 21:15 03/11/17 21:14 Ondansetron HCl (Zofran) 4 mg Q6H PRN IVP Nausea & Vomiting 02/09/17 21:15 03/11/17 21:14 Pantoprazole (Protonix) 40 mg DAILY ORAL 02/14/17 09:00 03/16/17 08:59 Polyethylene Glycol (Miralax) 17 gm DAILYPRN PRN ORAL Constipation 02/09/17 21:15 03/11/17 21:14 Quetiapine Fumarate (SEROquel) 12.5 mg Q4H PRN ORAL agitation 02/10/17 15:15 03/12/17 15:14 Temazepam (Restoril) 15 mg HSPRN PRN ORAL Insomnia 02/09/17 21:15 02/16/17 21:14 Vancomycin HCl (Vanco rx to dose) 1 ea DAILY PRN MISC PER RX PROTOCOL 02/09/17 21:30 03/11/17 21:29 Vancomycin/Sodium Chloride 250 ml @ 166.667 mls/hr Q48H IVPB 02/11/17 23:00 02/16/17 22:59 02/11/17 22:52 CLARISSA WAGGONER Feb 13, 2017 14:59
--- NOTE | 2017-02-13 15:13 | General Progress Note ---
Assessment/Plan Status: stable, progressing Subjective Neurologic/Psychiatric: Reports: anxiety, depressed, emotional problems Allergies: Coded Allergies: NO KNOWN DRUG ALLERGIES (Unverified Allergy, Unknown, 02/10/17) Subjective the pt was calm. more engaged. talkative, decrease agitation. calm.. less confused. Objective Last 24 Hour Vital Signs Date Time Temp Pulse Resp B/P (MAP) Pulse Ox O2 Delivery O2 Flow Rate FiO2 02/13/17 12:00 97.3 105 22 116/64 99 Room Air 02/13/17 12:00 105 110 02/13/17 10:00 89 100 02/13/17 08:02 82 18 Room Air 02/13/17 08:00 81 76 02/13/17 08:00 96.4 19 145/76 100 Room Air 02/13/17 06:00 88 91 95 02/13/17 04:00 98.6 98 20 146/99 97 02/13/17 00:00 97.0 70 18 147/80 98 Room Air 02/12/17 20:00 97.7 81 20 135/67 98 Room Air 02/12/17 19:42 87 18 Room Air 02/12/17 16:00 98.5 81 18 146/78 97 Room Air Height (Feet): 5 Height (Inches): 0.00 Weight (Pounds): 114 General Appearance: alert, thin Neurologic: alert, responsive, depressed affect Ant Jackman M.D. Feb 13, 2017 15:13
--- NOTE | 2017-02-16 13:29 | Discharge Summary ---
Discharge Summary Hospital Course Date of Admission Feb 09, 2017 at 18:51 Date of Discharge Feb 13, 2017 at 16:15 Admitting Diagnosis SYNCOPE,HYPOGLYCEMIA HPI David Rodríguez is a 89 year old female who was admitted on Feb 09, 2017 at 18:51 for Syncope, Hypoglycemia Hospital Course dc summary #[id number] Discharge Medications New Medications: Insulin Aspart (Novolog Flexpen) 100 Unit/1 Ml Insuln.pen 0 UNITS SUBQ BEFORE MEALS AND HS for 30 Days, EA Quetiapine Fumarate* (Seroquel*) 25 Mg Tablet 12.5 MG ORAL Q4H PRN for 30 Days, TAB Discharge Condition Upon Discharge: stable Discharge Disposition Patient was discharged to Home with home health services Discharge Diagnoses: Discharge Instructions Discharge Instructions Special Instructions I have been assigned to complete a D/C Summary on this account. I was not involved in the patient management Madison Romero NP (Vanchtein) Feb 16, 2017 13:29
--- NOTE | 2017-02-17 16:32 | Discharge Summary 2 SIG ---
DATE OF ADMISSION: 02/09/2017 DATE OF DISCHARGE: 02/13/2017 Reason For Admission: The patient is an 89-year-old female with past medical history significant for diabetes and hypertension, was found down on the floor. Her sugar was 25. She was given 25 g of D10 water. She woke up. At that time, she was altered. In the emergency department, CT of the head revealed no acute intracranial pathology. Echocardiogram revealed sinus rhythm. Chest x-ray revealed no acute cardiopulmonary issues. The patient noted to have sodium 147, BUN 36, and creatinine 1.6. CK is 499. Troponin negative. Urinalysis, no evidence of urinary tract infection. The patient was admitted for further management. Hospital Stay: The patient was admitted. Nephrology and Cardiology consults were requested. The patient was started on the IV fluids. Blood sugar was closely monitored. Hemoglobin A1c was 7.7. Blood sugar was stable. The patient was treated with sensitive dose of sliding scale of insulin on as needed basis. Home Insurance Agent seen and evaluated the patient. Serial troponin x2 were negative. Repeated CK down to normal. Elevated CK was likely secondary to prolonged immobilization after episodes of hypoglycemia. X-ray of bilateral knee was done since the patient complained of the pain and that was negative for acute bony trauma. Per employee benefits insurance agent, orthostatic vital signs were changed, which revealed no orthostatic changes. Lipid panel was stable, but triglycerides 186. The patient was educated on low-fat diet. Telemetry was negative. Home Insurance Agent cleared the patient for discharge. Mental status back to baseline. Transcription Manager seen the patient. Per provisioning analyst, acute renal failure and hypernatremia likely secondary to dehydration with slow hydration both improved. Sodium is down to 137 and creatinine down to 1.4. Psychiatrist seen and evaluated the patient, diagnosed the patient with delirium, and optimized her psychiatric medication regimen. DVT prophylaxis provided. The patient was on Seroquel per psychiatrist. The patient was working with physical and occupational therapy. The patient refused to be discharged to [facility] and stated that she wants to go home with a caregiver. Social service was extensively involved in the patient care. Social service met with the patient and spoke on the phone with the caregiver. area field worker addressed the concern of the patient's safety if she returns home especially with the patient's unsteady gait and limited caregiver support. While talking to , the caregiver and agreed to fish bait picker the patient. The patient had elevator in the building, which allows the patient not to walk two flights of stairs. The caregiver was committed to visit the patient daily and continue to provide her care and support. Home health was arranged as well. Home health will be seeing the patient daily for insulin injection and nursing care along with wound care and physical therapy. Home health will be in contact with the patient's primary medical doctor who will be overseeing the patient management. No durable medical treatment was necessary at this time. The patient was able to ambulate out of the room to look for social media director. Due to the possible concern of self neglect and home safety, adult protective services report was filed by social media director. The patient was stable for discharge home. DISCHARGE DIAGNOSES: 1. Acute metabolic encephalopathy, secondary to hypoglycemia. 2. Hypoglycemia. 3. Hypernatremia. 4. Acute renal failure, improved. 5. Dehydration. 6. Diabetes mellitus. 7. Upper sacral stage II, present on admission. Of note, wound care provided as per wound nurse recommendation. ADMITTING DIAGNOSES: Include, 1. Altered level of consciousness, secondary to hypoglycemia. 2. Hypoglycemia. 3. Hypernatremia. 4. Acute renal failure. 5. Possible acute tubular necrosis. DISCHARGE MEDICATIONS: See medication reconciliation list. Discharge Instructions: The patient discharged home with home health services. Ricky Pierce M.D. I have been assigned to dictate discharge summary on this account and I was not involved in the patient's management. Madison suáreznano NNanci MESA: MIGUEL JOB#: [id number] CC:
== END 2017-02-13 16:15 | disposition home or self-care (01) | DRG 637 ==
LOC: EDBD 18:19 → EMR 18:46 → 2E 18:51 → ENRESERV 20:09 → EDBEDREQ 20:17
DX: E11.649 Type 2 diabetes mellitus with hypoglycemia without coma (principal); G93.41 Metabolic encephalopathy; L89.152 Pressure ulcer of sacral region, stage 2; N17.0 Acute kidney failure with tubular necrosis; E87.0 Hyperosmolality and hypernatremia; M25.561 Pain in right knee; B35.1 Tinea unguium; M62.82 Rhabdomyolysis; L03.115 Cellulitis of right lower limb; Z79.4 Long term (current) use of insulin; E86.0 Dehydration; I10 Essential (primary) hypertension; M25.562 Pain in left knee; R41.0 Disorientation, unspecified
CPT/HCPCS: 36415; 70450; 71010; 80053; 80061; 81003; 82378; 82550; 82607; 82728; 82746; 82962; 82977; 83036; 83540; 83550; 83615; 83735; 83880; 84100; 84443; 84484; 84550; 85007; 85025; 85044; 85060; 85610; 85651; 85730; 86140; 87040; 87070; 87181; 87205; 90471; 90715; 93005; 94664; 99285; J1815